=== PATIENT | male | born 1985 | race Caucasian/White ===

== ENCOUNTER 2023-01-02 09:00 | Outpatient (AMB) | payer OTHER, SELFPAY ==
--- NOTE | 2023-01-02 09:09 | HO.SPINEOV ---
Intake Intake Visit Reasons: radiculopathy Intake Note: Mr. Nolen is here today c/o back pain. MRI done @ [facility]/brought disc. [facility] Luggage Required: No Assessment & Plan Assessment & Plan (1) Lumbar facet joint pain: Code(s): M54.59 - Other low back pain Plan Dear Justen Thank you for referring Ruy Nolen to the office today with a chief complaint of low back pain. HPI: This 37-year-old male has a prolonged history of chronic low back pain. The pain started 10+ years ago when he bended forward and felt a crack in his back followed by severe pain. He had to walk around with a cane for several weeks. He describes the pain to be in the lumbar region, more on the left side with pain and the lateral part of his left thigh. The pain wakes him up at night. Turning is painful. Extension of the spine is painful. No numbness or weakness. No bowel or urinary problems. He tried anti-inflammatory drugs and chiropractic therapy without results. He is scheduled to undergo an injection. 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 This pain on palpation on the left side of his lower spine.Ritchie sign is positive. SI provocative tests are negative. Straight leg raise is negative. Neurological exam is intact to motor sensation and reflexes Radiological Studies: MRI done at [facility] shows mild degenerative disc disease L2-3 and L3-4 and a small disc bulge L4-5 from the left side without nerve compression. There is also mild facet hypertrophy. Impression/Plan: This patient is suffering from a constant low back pain not responding to anti-inflammatory drugs or conservative treatment. The history is compatible with facet joint pain. This would be my focus of injections if an epidural steroid injection does not work. I do not think the symptoms are related to the mild degenerative disc disease. However, if over time these disc start to degenerate further and no other therapies are helping then this may be the source of pain before would surgery can be considered. Thank you for allowing me to participate in your patients care. total time spent was 50 minutes in counseling ,coordination of plan, personal review of imaging, surgical decision making and subsequent plan Noel Rodriguez MD, PhD [facility] Trained Neurosurgeon Director, [facility] Coding Level of Care Code New Pt Level 4 (96253) Diagnoses Lumbar facet joint pain M54.59
== END 2023-01-02 12:03 | disposition home or self-care (01) ==
PROVIDERS: PCP Internal Medicine; Referring Provider Physician Assistant; Visit Provider Neurological Surgery
DX: M54.59 Other low back pain (principal)
CPT/HCPCS: 99204

== ENCOUNTER → 2023-01-02 09:00 | Outpatient (BNVA) | payer OTHER, SELFPAY | PROVIDERS: PCP Internal Medicine; Visit Provider Neurological Surgery | DX: G89.4 Chronic pain syndrome (principal); M54.59 Other low back pain | CPT/HCPCS: 99202 ==

== ENCOUNTER 2025-01-04 11:05 | Outpatient (REF) | payer OTHER, SELFPAY ==
--- NOTE | 2025-01-04 | EMG_ITS ---
Chief complaint: Right side low back pain Reason for referral: lumbar spondylosis Referred by: BETTY Peña Procedure done: Nerve conduction study bilateral lowers Findings: Impression: Clinical Comment:? Bilateral tibial and peroneal motor studies were performed bilateral superficial peroneal sural and lateral femoral cutaneous sensory studies were performed tibial H reflexes were obtained and EMG needle examination is performed. Impression: Mild bilateral lateral femoral cutaneous neuropathy. Otherwise no significant abnormality noted. MTDD
--- OUTSIDE RECORDS SUMMARY | 2025-01-04 13:35 | XMS_ITS | Clinical Summary ---
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 Multiplanar, multisequence MRI of the lumbar spine Withoutcontrast. COMPARISON: No priors available. FINDINGS: Lumbar alignment is within normal limits. No fracture or suspicious marrow replacing lesion. Multilevel degenerative loss of normal disc height and signal withassociated endplate spurring Mild facet arthritis at L4-5 bilaterally. Conus medullaris is normal and terminates at T12-L1. No epiduralcollection or mass is seen within the spinal canal. Right renal cyst. Paraspinal muscles are normal. Findings by level: L1-2: No foraminal or spinal canal stenosis L2-3: No foraminal or spinal canal stenosis. L3-4: Diffuse disc bulge with endplate spurring. No foraminal or spinalcanal stenosis. L4-5: Diffuse disc bulge with endplate spurring. Bilateral facetarthropathy. No spinal canal stenosis. Mild foraminal stenosisbilaterally. L5-S1: Central annular tear. No focal disc protrusion, foraminalstenosis, or spinal canal stenosis. IMPRESSION: Mild multilevel degenerative disc, facet, and endplate changes withouthigh-grade foraminal or spinal canal stenosis in the lumbar spine. -------- FINAL REPORT -------- Dictated By: COLBY EDOUARD Dictated Date: 12/14/2024 14:36 ET Assigned Physician: COLBY EDOUARD Reviewed and Electronically Signed By: COLBY EDOUARD Signed Date: 12/14/2024 14:57 ET Workstation ID: [id number] Transcribed By: Self Edit Transcribed Date: 12/14/2024 14:36 ET us Lisa Starks MD IMG MRI PROCEDURES Final Resu lt * MR Hip wo Contrast Right (12/09/2024 8:06 PM EDT) Anatomical Region Laterality Modality Lower Extremities, Hip Right Magnetic Resonance 12/10/2024 4:48 AM EDT Impressions 12/10/2024 4:56 AM EDT Constellation of findings which can be seen in the clinical setting of femoro-acetabular impingement of the right hip with associated herniation pit and possible right superior labral tear -------- FINAL REPORT -------- Dictated By: Salma Farmer Dictated Date: 12/10/2024 04:48 ET Assigned Physician: Salma Farmer Reviewed and Electronically Signed By: Salma Farmer Signed Date: 12/10/2024 04:56 ET Workstation ID: [id number] Transcribed By: Self Edit Transcribed Date: 12/10/2024 04:48 ET Narrative 12/10/2024 4:56 AM EDT INDICATION: Hip pain, chronic, articular cartilage eval, xray done COMPARISON: Correlation is made with right hip radiographs dated 10/2024 TECHNIQUE: Multiplanar, multisequence MRI was performed of the right hip without intravenous contrast administration. FINDINGS: Bone: No acute fracture or dislocation of the right hip. Mild degenerative changes of the inferior sacroiliac joints with cystic change on the right. These Osseous prominence at the right femoral head/neck junction with mild right hip acetabular over coverage. A herniation pit is noted involving the right femoral head/neck junction. No significant cartilage thinning of the right hip. Osseous prominence at the left femoral head/neck junction with mild left hip acetabular over coverage. Soft Tissues: Nonspecific fluid signal involving the superior labrum which may represent a small labral tear. No significant hip joint effusion. Mild bilateral greater trochanteric bursitis (right greater than left). Mild right gluteus medias tendinosis. Right gluteus minimums tendon is intact. Mild right common hamstring origin tendinosis. Visualized muscles of the right pelvis and upper thigh are unremarkable. Procedure Note Salma Farmer MD - 12/10/2024 INDICATION: Hip pain, chronic, articular cartilage eval, xray done COMPARISON: Correlation is made with right hip radiographs dated 10/2024 TECHNIQUE: Multiplanar, multisequence MRI was performed of the right hipwithout intravenous contrast administration. FINDINGS: Bone: No acute fracture or dislocation of the right hip. Milddegenerative changes of the inferior sacroiliac joints with cystic changeon the right. These Osseous prominence at the right femoral head/neck junction with mild righthip acetabular over coverage. A herniation pit is noted involving theright femoral head/neck junction. No significant cartilage thinning ofthe right hip. Osseous prominence at the left femoral head/neck junction with mild lefthip acetabular over coverage. Soft Tissues: Nonspecific fluid signal involving the superior labrum which may representa small labral tear. No significant hip joint effusion. Mild bilateralgreater trochanteric bursitis (right greater than left). Mild rightgluteus medias tendinosis. Right gluteus minimums tendon is intact. Mildright common hamstring origin tendinosis. Visualized muscles of the rightpelvis and upper thigh are unremarkable. IMPRESSION: Constellation of findings which can be seen in the clinical setting offemoro-acetabular impingement of the right hip with associated herniationpit and possible right superior labral tear -------- FINAL REPORT -------- Dictated By: Salma Farmer Dictated Date: 12/10/2024 04:48 ET Assigned Physician: Salma Farmer Reviewed and Electronically Signed By: Salma Farmer Signed Date: 12/10/2024 04:56 ET Workstation ID: [id number] Transcribed By: Self Edit Transcribed Date: 12/10/2024 04:48 ET Lance [facility] IMG MRI PROCEDURES Final Resul t * [place] ARTHROCENTESIS/ASPIRATION/INJECTION MAJOR JOINT/BURSA W/O U/S GUIDANCE (12/08/2024 10:00 AM EDT) Lisa Epps MD - 12/08/2024 10:00 AM EDT Lisa Starks MD 12/17/2024 3:49 PM Large joint Inj/Asp: R greater trochanteric bursa Indications: pain Details: 22 G needle, lateral approach Medications: 40 mg triamcinolone acetonide 40 mg/mL As per dictation Informed Consent: Laterality: Right Lisa Starks MD IN CLINIC/BEDSIDE ORDERABLES Final Result * (ABNORMAL) Urinalysis with reflex microscopic (11/28/2024 7:50 PM EDT) Only the most recent of2 resultswithin the time period is included. Specific [place] Urine 1.026 1.003 - 1.030 LAB URINALYSIS - AUTOMATED METHOD 11/28/2024 8:05 PM [facility] pH, Urine 6.0 5.0 - 8.0 pH LAB URINALYSIS - AUTOMATED METHOD 11/28/2024 8:05 PM [facility] Leukocytes, Urine Negative Negative LAB URINALYSIS - AUTOMATED METHOD 11/28/2024 8:05 PM [facility] Nitrite, Urine Negative Negative LAB URINALYSIS - AUTOMATED METHOD 11/28/2024 8:05 PM [facility] Protein, Urine Negative <=Trace mg/dL LAB URINALYSIS - AUTOMATED METHOD 11/28/2024 8:05 PM [facility] Glucose, Urine Negative Negative mg/dL LAB URINALYSIS - AUTOMATED METHOD 11/28/2024 8:05 PM [facility] Ketones, Urine Trace(A) Negative mg/dL LAB URINALYSIS - AUTOMATED METHOD 11/28/2024 8:05 PM [facility] Urobilinogen, Urine 0.2 0.2 - 1.0 mg/dL LAB URINALYSIS - AUTOMATED METHOD 11/28/2024 8:05 PM [facility] Bilirubin, Urine Negative Negative LAB URINALYSIS - AUTOMATED METHOD 11/28/2024 8:05 PM [facility] Blood, Urine Negative Negative LAB URINALYSIS - AUTOMATED METHOD 11/28/2024 8:05 PM [facility] Urine Urine specimen obtained by clean catch procedure / Unknown Non-blood Collection / Unknown 11/28/2024 7:50 PM EDT 11/28/2024 7:59 PM EDT us [facility] LAB URINE ORDERABLES Fin al Result [facility] [address] [place] [address], [place] [phone] * US Retroperitoneal Limited (11/28/2024 7:40 PM EDT) Anatomical Region Laterality Modality Body Ultrasound 11/28/2024 8:27 PM EDT Impressions 11/28/2024 8:27 PM EDT Impression: There is a 6.5 x 6.6 cm multilocular cyst with 3.1 mm thick septation located in the lower pole of the right kidney Bosniak classification 2 F. Recommend follow-up ultrasound in 6 months if not already done. This document has been electronically signed by: Melvin Murphy MD on 11/28/2024 20:27:06 Narrative 11/28/2024 8:27 PM EDT INDICATION: Flank pain, kidney stone suspected US retroperitoneum Comparison: CT 11/27/2024 Findings: Right kidney normal size and echotexture, 13.5cm length. No hydronephrosis. Normal color flow. There is a cyst with septations in the lower pole of the right kidney measuring 5.6 x 6.1 x 3.4 cm. Left kidney normal size and echotexture, 11.4cm in length. No hydronephrosis. Normal color flow. Urinary bladder is unremarkable. Prevoid volume mL. Postvoid volume mL. Ureteral jets are visualized bilaterally Procedure Note Melvin Murphy MD - 11/28/2024 INDICATION: Flank pain, kidney stone suspected US retroperitoneum Comparison: CT 11/27/2024 Findings: Right kidney normal size and echotexture, 13.5cm length. No hydronephrosis. Normal color flow. There is a cyst with septations in the lower pole of the right kidney measuring 5.6 x 6.1 x 3.4 cm. Left kidney normal size and echotexture, 11.4cm in length. No hydronephrosis. Normal color flow. Urinary bladder is unremarkable. Prevoid volume mL. Postvoid volume mL. Ureteral jets are visualized bilaterally IMPRESSION: Impression: There is a 6.5 x 6.6 cm multilocular cyst with 3.1 mm thick septation located in the lower pole of the right kidney Bosniak classification 2F. Recommend follow-up ultrasound in 6 months if not already done. This document has been electronically signed by: Melvin Murphy MD on 11/28/2024 20:27:06 us [facility] IMG US PROCEDURES Final Result * Reza urine culture tube (11/28/2024 12:00 AM EDT) Only the most recent of2 resultswithin the time period is included. Extra Tube Hold for add-ons. 11/28/2024 9:[address] [facility] Comment:Auto resulted. Urine Urine specimen obtained by clean catch procedure / Unknown 11/28/2024 11/28/2024 8:00 PM EDT [facility] LAB URINE ORDERABLES Fin al Result [facility] [address] [place] [address], [place] [phone] * CT Abdomen Pelvis w Contrast (11/27/2024 5:22 PM EDT) Anatomical Region Laterality Modality Body Computed Tomogra phy 11/27/2024 5:51 PM EDT Impressions 11/27/2024 5:51 PM EDT Impression: 1. No acute abnormality or CT explanation for right lower quadrant pain. Specifically, unremarkable appendix. 2. Mildly complex right renal cyst (Bosniak category 3). Consider further characterization with nonemergent MRI or renal mass protocol CT. This document has been electronically signed by: Juan Marrufo MD on 11/27/2024 17:51:01 Narrative 11/27/2024 5:51 PM EDT INDICATION: RLQ abdominal pain, appendicitis suspected (Age >= 14y) Exam: Contrast-enhanced CT abdomen and pelvis with multiplanar reformats. Comparison: None. Findings: CT abdomen: Lung bases reveal minimal bilateral dependent atelectasis. Liver is free of focal lesions and ductal dilatation. Gallbladder is unremarkable. Spleen appears unremarkable. Pancreas and adrenal glands appear unremarkable. Left kidney reveals a lower pole cyst measuring up to 5.1 cm maximal cross-sectional dimension (3; 75, 16 Hounsfield units). There is a thin internal septation, with equivocal punctate nodular foci (3; 81-84, Bosniak category 3). Kidneys otherwise unremarkable. No free intraperitoneal fluid or retroperitoneal masses or adenopathy. Abdominal aorta is normal caliber. Bowel loops reveal no abnormal wall thickening or distention. The appendix appears unremarkable (best seen on 200; 43-49). CT pelvis: Prostate gland measures 4.4 cm transverse dimension. Urinary bladder is free of gross filling defects. No pelvic masses, fluid or adenopathy. Osseous structures reveal no destructive osseous lesions. Procedure Note Juan Marrufo MD - 11/27/2024 INDICATION: RLQ abdominal pain, appendicitis suspected (Age >= 14y) Exam: Contrast-enhanced CT abdomen and pelvis with multiplanarreformats. Comparison: None. Findings: CT abdomen: Lung bases reveal minimal bilateral dependent atelectasis. Liver is free of focal lesions and ductal dilatation. Gallbladder is unremarkable. Spleen appears unremarkable. Pancreas and adrenal glands appear unremarkable. Left kidney reveals a lower pole cyst measuring up to 5.1 cm maximal cross-sectional dimension (3; 75, 16 Hounsfield units). There is a thin internal septation, with equivocal punctate nodular foci (3; 81-84, Bosniak category 3). Kidneys otherwise unremarkable. No free intraperitoneal fluid or retroperitoneal masses or adenopathy. Abdominal aorta is normal caliber. Bowel loops reveal no abnormal wall thickening or distention. Theappendix appears unremarkable (best seen on 200; 43-49). CT pelvis: Prostate gland measures 4.4 cm transverse dimension. Urinary bladder is free of gross filling defects. No pelvic masses, fluid or adenopathy. Osseous structures reveal no destructive osseous lesions. IMPRESSION: Impression: 1. No acute abnormality or CT explanation for right lower quadrant pain. Specifically, unremarkable appendix. 2. Mildly complex right renal cyst (Bosniak category 3). Considerfurther characterization with nonemergent MRI or renal mass protocol CT. This document has been electronically signed by: Juan Marrufo MD on 11/27/2024 17:51:01 Jessica Cervantes MD IMG CT PROCEDURES Final Result * (ABNORMAL) CBC auto differential (11/27/2024 3:48 PM EDT) [facility] Signature WBC 6.7 4.8 - 10.8 K/mcL LAB HEMETOLOGY METHOD 11/27/2024 4:[address] [facility] RBC 4.70 4.50 - 5.50 M/mcL LAB HEMETOLOGY METHOD 11/27/2024 4:[address] [facility] Hemoglobin 13.9 13.5 - 17.5 g/dL LAB HEMETOLOGY METHOD 11/27/2024 4:[address] [facility] Hematocrit 41.1(L) 42.0 - 54.0 % LAB HEMETOLOGY METHOD 11/27[facility]2024 [facility] MCV 88.0 79.0 - 98.0 FL LAB HEMETOLOGY METHOD 11/27[facility]2024 [facility] MCH 29.8 27.0 - 32.0 pcg LAB HEMETOLOGY METHOD 11/27/2024 4:[address] [facility] MCHC 33.8 32.0 - 37.0 g/dL LAB HEMETOLOGY METHOD 11/27/2024 4:[facility] RDW 11.4 11.0 - 15.0 % LAB HEMETOLOGY METHOD 11/27[facility]2024 [facility] Platelets 304 130 - 400 K/mcL LAB HEMETOLOGY METHOD 11/27/2024 4:[address] [facility] MPV 9.2 7.0 - 11.0 FL LAB HEMETOLOGY METHOD 11/27/2024 4[facility] NRBC 0.0 <1.0 % LAB HEMETOLOGY METHOD 11/27[facility]2024 [facility] NRBC Absolute 0.00 <0.10 K/mcL LAB HEMETOLOGY METHOD 11/27/2024 4:11 PM [facility] Neutrophils Relative 60.2 % LAB HEMETOLOGY METHOD 11/27/2024 4:11 PM [facility] Lymphocytes Relative 26.7 % LAB HEMETOLOGY METHOD 11/27/2024 4:11 PM [facility] Monocytes Relative 10.5 % LAB HEMETOLOGY METHOD 11/27/2024 4:11 PM [facility] Eosinophils Relative 2.1 % LAB HEMETOLOGY METHOD 11/27/2024 4:11 PM [facility] Basophils Relative 0.4 % LAB HEMETOLOGY METHOD 11/27/2024 4:11 PM [facility] Immature Granulocytes Relative 0.1 % LAB HEMETOLOGY METHOD 11/27/2024 4:11 PM [facility] Neutrophils Absolute 4.01 1.50 - 7.00 K/mcL LAB HEMETOLOGY METHOD 11/27/2024 4:11 PM [facility] Lymphocytes Absolute 1.78 1.00 - 5.00 K/mcL LAB HEMETOLOGY METHOD 11/27/2024 4:11 PM [facility] Monocytes Absolute 0.70 0.20 - 1.00 K/mcL LAB HEMETOLOGY METHOD 11/27/2024 4:11 PM [facility] Eosinophils Absolute 0.14 0.00 - 0.50 K/mcL LAB HEMETOLOGY METHOD 11/27/2024 4:11 PM [facility] Basophils Absolute 0.03 0.00 - 0.20 K/mcL LAB HEMETOLOGY METHOD 11/27/2024 4:11 PM [facility] Immature Granulocytes Absolute 0.01 0.00 - 0.03 K/mcL LAB HEMETOLOGY METHOD 11/27/2024 4:11 PM [facility] Blood Venous blood specimen / Unknown Venipuncture / Unknown 11/27/2024 3:48 PM EDT 11/27/2024 4:06 PM EDT us Jessica Cervantes MD LAB BLOOD ORDERABLES Final Resul t Performing Organization Address [facility]/ZIP Co de Phone Number [facility] [address] [place] [address], [place] [phone] * Lipase (11/27/2024 3:48 PM EDT) Lipase 24 13 - 75 unit/L LAB CHEMISTRY METHOD 11/27/2024 4:[address] [facility] Blood Venous blood specimen / Unknown Venipuncture / Unknown 11/27/2024 3:48 PM EDT 11/27/2024 4:06 PM EDT us Jessica Cervantes MD LAB BLOOD ORDERABLES Final Resul t Performing Organization Address [facility] de Phone Number [facility] [address] [place] [address], [place] [phone] * (ABNORMAL) Comprehensive Metabolic Panel (CMP) (11/27/2024 3:48 PM EDT) Pathologist [facility] Sodium 138 133 - 145 mmol/L LAB CHEMISTRY METHOD 11/27/2024 4:[address] [facility] Potassium 3.9 3.5 - 5.5 mmol/L LAB CHEMISTRY METHOD 11/27/2024 4:[address] [facility] Chloride 104 96 - 110 mmol/L LAB CHEMISTRY METHOD 11/27/2024 4:[address] [facility] CO2 32 21 - 32 mmol/L LAB CHEMISTRY METHOD 11/27/2024 4:[address] [facility] Anion Gap 2(L) 3 - 11 LAB CHEMISTRY METHOD 11/27/2024 4:[address] [facility] Glucose 98 70 - 100 mg/dL LAB CHEMISTRY METHOD 11/27/2024 4:53 PM [facility] BUN 24 5 - 25 mg/dL LAB CHEMISTRY METHOD 11/27/2024 4:53 PM [facility] Creatinine 1.13 0.70 - 1.30 mg/dL LAB CHEMISTRY METHOD 11/27/2024 4:53 PM [facility] eGFR 85 >=60 mL/min/1. 73m2 LAB CHEMISTRY METHOD 11/27/2024 4:53 PM [facility] Comment:Calculation based on the Chronic Kidney Disease Epidemiology Collaboration (CKD-EPI) equation refit without adjustment for race. BUN/Creatinine Ratio 21.2 LAB CHEMISTRY METHOD 11/27/2024 4:53 PM [facility] Calcium 9.0 8.5 - 10.5 mg/dL LAB CHEMISTRY METHOD 11/27/2024 4:53 PM [facility] AST (SGOT) 18 10 - 42 unit/L LAB CHEMISTRY METHOD 11/27/2024 4:53 PM [facility] ALT (SGPT) 20 10 - 60 unit/L LAB CHEMISTRY METHOD 11/27/2024 4:53 PM [facility] Alkaline Phosphatase 95 42 - 121 unit/L LAB CHEMISTRY METHOD 11/27/2024 4:53 PM [facility] Total Protein 7.2 6.0 - 8.0 g/dL LAB CHEMISTRY METHOD 11/27/2024 4:53 PM [facility] Albumin 4.0 3.2 - 5.0 g/dL LAB CHEMISTRY METHOD 11/27/2024 4:53 PM [facility] Total Bilirubin 0.5 0.0 - 1.4 mg/dL LAB CHEMISTRY METHOD 11/27/2024 4:53 PM [facility] Blood Venous blood specimen / Unknown Venipuncture / Unknown 11/27/2024 3:48 PM EDT 11/27/2024 4:06 PM EDT us Jessica Cervantes MD LAB BLOOD ORDERABLES Final Resul t [facility] [address] [place] [address], [place] [phone] * Urinalysis with reflex microscopic and culture (11/27/2024 3:44 PM EDT) Pathologist [facility] Specific [place] Urine 1.019 1.003 - 1.030 LAB URINALYSIS - AUTOMATED METHOD [facility] pH, Urine 7.0 5.0 - 8.0 pH LAB URINALYSIS - AUTOMATED METHOD 11/27/2024 10:03 PM [facility] Leukocytes, Urine Negative Negative LAB URINALYSIS - AUTOMATED METHOD 11/27/2024 10:03 PM [facility] Nitrite, Urine Negative Negative LAB URINALYSIS - AUTOMATED METHOD 11/27/2024 10:03 PM [facility] Protein, Urine Negative <=Trace mg/dL LAB URINALYSIS - AUTOMATED METHOD 11/27/2024 10:03 PM [facility] Glucose, Urine Negative Negative mg/dL LAB URINALYSIS - AUTOMATED METHOD 11/27/2024 10:03 PM [facility] Ketones, Urine Negative Negative mg/dL LAB URINALYSIS - AUTOMATED METHOD 11/27/2024 10:03 PM [facility] Urobilinogen, Urine 1.0 0.2 - 1.0 mg/dL LAB URINALYSIS - AUTOMATED METHOD 11/27/2024 10:03 PM [facility] Bilirubin, Urine Negative Negative LAB URINALYSIS - AUTOMATED METHOD 11/27/2024 10:03 PM [facility] Blood, Urine Negative Negative LAB URINALYSIS - AUTOMATED METHOD 11/27/2024 10:[address] [facility] Urine Urine specimen obtained by clean catch procedure / Unknown Non-blood Collection / Unknown 11/27/2024 3:44 PM EDT 11/27/2024 10:03 PM EDT us Jessica Cervantes MD LAB URINE ORDERABLES Final Resul t [facility] [address] [place] [address], [place] [phone] * XR Hip 2-3 Views Right (11/25/2024 6:22 PM EDT) Anatomical Region Laterality Modality Lower Extremities, Hip Right Radiograp hic Imaging 11/26/2024 7:48 AM EDT Impressions 11/26/2024 7:49 AM EDT Normal examination. Code 96833 -------- FINAL REPORT -------- Dictated By: Carlos Toure Dictated Date: 11/26/2024 07:48 ET Assigned Physician: Carlos Toure Reviewed and Electronically Signed By: Carlos Toure Signed Date: 11/26/2024 07:49 ET Workstation ID: [id number] Transcribed By: Self Edit Transcribed Date: 11/26/2024 07:48 ET Narrative 11/26/2024 7:49 AM EDT HISTORY: The patient is a 39-year-old male with chronic right hip pain. No history of trauma is provided. Findings: AP radiograph of the pelvis, along with coned-down AP and external rotation-abduction views of the right hip, are obtained. The study demonstrates no fracture, dislocation, arthritic change, osteolytic or osteoblastic lesion, or other bony abnormality. No soft tissue abnormality is seen. Procedure Note Carlos Toure MD - 11/26/2024 HISTORY: The patient is a 39-year-old male with chronic right hip pain. Nohistory of trauma is provided. Findings: AP radiograph of the pelvis, along with coned-down AP andexternal rotation-abduction views of the right hip, are obtained. Thestudy demonstrates no fracture, dislocation, arthritic change, osteolyticor osteoblastic lesion, or other bony abnormality. No soft tissueabnormality is seen. IMPRESSION: Normal examination. Code 15129 -------- FINAL REPORT -------- Dictated By: Carlos Toure Dictated Date: 11/26/2024 07:48 ET Assigned Physician: Carlos Toure Reviewed and Electronically Signed By: Carlos Toure Signed Date: 11/26/2024 07:49 ET Workstation ID: [id number] Transcribed By: Self Edit Transcribed Date: 11/26/2024 07:48 ET Dipesh [facility] IMG XR PROCEDURES Final Resul t * MR Foot wo Contrast Right (11/25/2024 11:04 AM EDT) Anatomical Region Laterality Modality Lower Extremities, Foot Right Magnetic Resonance 11/26/2024 7:28 PM EDT Impressions 11/26/2024 7:42 PM EDT Mild 1st MTP osteoarthritis. No fracture, ligament injury, or tendon rupture. -------- FINAL REPORT -------- Dictated By: COLBY EDOUARD Dictated Date: 11/26/2024 19:28 ET Assigned Physician: COLBY EDOUARD Reviewed and Electronically Signed By: COLBY EDOUARD Signed Date: 11/26/2024 19:42 ET Workstation ID: [id number] Transcribed By: Self Edit Transcribed Date: 11/26/2024 19:28 ET Narrative 11/26/2024 7:42 PM EDT PROCEDURE: Right foot MRI INDICATION: Strain TECHNIQUE: Multiplanar, multisequence MRI of the right foot Without contrast. COMPARISON: No priors available. FINDINGS: There is susceptibility artifact between the 4th and 5th toes as well as along the superficial soft tissues lateral to the proximal 5th metatarsal which may be related to surgical hardware and/or metallic foreign bodies in the region. Several additional small foci of susceptibility artifact are also seen throughout the cutaneous surfaces of the forefoot. No fracture or suspicious marrow replacing lesion. Diffuse partial-thickness articular cartilage loss is seen at the 1st MTP with regions of full-thickness cartilage loss along the central portion of the 1st metatarsal head. No significant joint effusions. Lisfranc ligament complex and intermetatarsal ligaments are intact where visualized. Greater and lesser plantar plate ligament is structures are intact. Flexor and extensor tendons are intact. Muscle bulk is preserved. No soft tissue mass or fluid collection. Procedure Note Colby Edouard MD - 11/26/2024 PROCEDURE: Right foot MRI INDICATION: Strain TECHNIQUE: Multiplanar, multisequence MRI of the right foot Withoutcontrast. COMPARISON: No priors available. FINDINGS: There is susceptibility artifact between the 4th and 5th toes as well asalong the superficial soft tissues lateral to the proximal 5th metatarsalwhich may be related to surgical hardware and/or metallic foreign bodiesin the region. Several additional small foci of susceptibility artifactare also seen throughout the cutaneous surfaces of the forefoot. No fracture or suspicious marrow replacing lesion. Diffuse partial-thickness articular cartilage loss is seen at the 1st MTPwith regions of full-thickness cartilage loss along the central portion ofthe 1st metatarsal head. No significant joint effusions. Lisfranc ligament complex and intermetatarsal ligaments are intact wherevisualized. Greater and lesser plantar plate ligament is structures areintact. Flexor and extensor tendons are intact. Muscle bulk is preserved. No soft tissue mass or fluid collection. IMPRESSION: Mild 1st MTP osteoarthritis. No fracture, ligament injury, or tendonrupture. -------- FINAL REPORT -------- Dictated By: COLBY EDOUARD Dictated Date: 11/26/2024 19:28 ET Assigned Physician: COLBY EDOUARD Reviewed and Electronically Signed By: COLBY EDOUARD Signed Date: 11/26/2024 19:42 ET Workstation ID: [id number] Transcribed By: Self Edit Transcribed Date: 11/26/2024 19:28 ET Ru Ivan DPM IMG MRI PROCEDURES Final Result * [place] ARTHROCENTESIS/ASPIRATION/INJECTION SMALL JOINT/BURSA WO U/S GUIDANCE (11/03/2024 8:45 AM EDT) Lisa Epps MD - 11/03/2024 8:45 AM EDT Lisa Starks MD 11/03/2024 10:16 AM Small Inj/Asp: L long MCP Details: 25 G needle, dorsal approach Medications: 20 mg triamcinolone acetonide 40 mg/mL The site over the MCP joint of the left long finger was prepped with Betadine alcohol. A small wheal of 1% lidocaine with epinephrine was injected under the skin. After that had a chance to take effect of then prepped the area again and injected 20 mg of Kenalog into the joint. A Band-Aid was applied. Patient tolerated well. Informed Consent: Site: Left long finger MCP joint Laterality: Left Relevant images/test results available and reviewed: yes Health status cleared: Yes Procedure/treatment, purpose, treatment alternatives, risks/potential complications and benefits explained: yes Risk/complications/benefits details: Cortisone is an effective medication to treat swelling, inflammation, and pain. It is used frequently for such conditions as arthritis, tendinitis, bursitis, and carpal tunnel syndrome. However, there are risks to the use of cortisone. For diabetics it can raise blood sugars to a dangerous level. It can cause skin thinning, fat atrophy, skin discoloration, and wound healing issues. It can predispose to infection. Chronic use can affect bone metabolism. It can over time and with repeated usage become less effective. Generally it is advisable NOT to have more than 3 injections/year. Patient questions answered: yes Patient agrees, verbalizes understanding, and wants to proceed: yes Consent given by: Patient Informed consent discussion completed by Physician/RIAZ with patient: Verbal Pre-procedure timeout performed: yes us Lisa Starks MD IN CLINIC/BEDSIDE ORDERABLES Final Result * XR Hand 3+ Views Left (11/03/2024 8:43 AM EDT) Anatomical Region Laterality Modality Upper Extremities, Hand Left Computed Radiography Narrative 11/03/2024 10:12 AM EDT AP, lateral, oblique of the left hand was obtained on 11/03/2024. There are no obvious fractures, lytic lesions, or unusual calcifications. Soft tissue envelope is well-maintained. Joint spaces are well-maintained and concentric. us Lisa Starks MD IMG XR PROCEDURES Final Resul t * Hm Depression Screening (10/08/2023) Pathologist [facility] Depression Screening Abstracted Historical Provider HEALTH MAINTENANCE Final Result * Lipid panel (12/01/2012) Pathologist [facility] Cholesterol 150 0 - 200 mg/dL LDL Cholesterol 78 0 - 100 mg/dL Blood Venous blood specimen / Unknown Historical Provider LAB BLOOD ORDERABLES Prudence l Result from Last 3 Months or Most Recently Relevant to Health Maintenance Insurance [facility] [email or web address] PLAN Advance Directives * Full Code - Default (Latest Code Status on File) Date Activated Date Inactivated Comments 08/06/2024 7:39 AM 08/06/2024 4:50 PM This is orde r is used when code status has not been discussed with the patient, or code status is otherwise unknown/unconfirmed To update the patient's code status, place a code status order. Do not modify or discontinue any currently active code status orders. Care Teams Restuarant Crew Worker Relationship Specialty Start Date End Date Cynthia Hall MD [facility] [place] [address] PCP - General 02/11/24
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
--- OUTSIDE RECORDS SUMMARY | 2025-01-04 13:35 | XMS_ITS | Clinical Summary ---
Author Organization [facility] Address [address] [place] [address] Phone Care Team Providers Care Box Icer Name Role Phone Cynthia Hall MD Primary Care Pr ovider Social History Tobacco Use Types Packs/Day Years Used Date Smoking Tobacco: Never Assessed Sex and Gender Information Value Date Recorded Sex Assigned at Male 09/07/2024 4:12 PM EDT Legal Sex Male 5:00 PM EST Gender Identity Male 09/07/2024 4:12 PM EDT Sexual Orientation Straight 09/07/2024 4: 12 PM EDT Plan of Treatment Not on file Medical Devices Not on file Insurance [facility]D) [facility]CO [facility] ([employer]D) [facility] ACO [facility] (MXD[employer]D) [facility] ACO Care Teams Box Icer Relationship Specialty Start Date End Date Cynthia Hall MD [address] [place] [address] PCP - General Internal Medicine 09/07/24 Additional Source Comments The information contained in this document represents components of the legal health record. It is not the complete legal health record.[facility]
--- OUTSIDE RECORDS SUMMARY | 2025-01-04 13:35 | XMS_ITS | Encounter Summary ---
Author Organization [facility] Address [address] [place] [address] Care Team Providers Care Pan Shover Name Role Phone Cynthia Hall MD Primary Care Prov ider Reason for Visit * Reason Onset Date Comments MRI results 12/16/2024 Encounter Details Date Type Department Care Team (Late st Contact Info) Description 12/16/2024 Telephone Orthopedic Surgery - [place] [address] [phone] Ru Ivan, DPM [address] [phone] Social History Tobacco Use Types Packs/Day Years [...] as of this encounter Progress Notes * Clemente Nolen - 12/16/2024 10:15 AM EDT Patient is looking for his MRI results. documented in this encounter Plan of Treatment Upcoming Encounters Date Type Department Care Team (Late st Contact Info) Description 01/08/2025 8:00 AM EDT Office Visit Orthopedic Surgery [facility] [address] [facility] 160 [place] [phone] Leyda Marte MD [address] [facility] 160 [place], [place] [phone] 02/04/2025 8:45 AM EDT Office Visit Orthopedic Surgery [facility] [address] [facility] [address] [place] [phone] Ru Ivan DPM 175 [facility] 250 [place] [phone] 03/09/2025 9:30 AM EST Office Visit Orthopedic [facility] [address] [facility] 140 [place] [phone] Lisa Starks MD 175 [facility] 140 [place] [address] Scheduled Procedures Name Priority Associated [...] on filedocumented in this encounter Care Teams Pan Shover Relationship Specialty Start Date End Date Cynthia Hall MD [address] [place] [address] PCP - General 02/11/24 documented as of this encounter
--- OUTSIDE RECORDS SUMMARY | 2025-01-04 13:35 | XMS_ITS | Encounter Summary ---
Author Organization [employer] Address [address] [place] [address] Care Team Providers Care Management Aide Name Role Phone Cynthia Hall MD Primary Care Prov ider Reason for Visit * Reason Onset Date Comments Request For Order(s) 12/08/2024 Encounter Details Date Type Department Care Team ([facility] st Contact Info) Description 12/08/2024 Telephone Adult Medicine - [place] [address] [place] [phone] Cynthia Hall MD [address] [place] [address] Social History Tobacco Use Types Packs/Day Years [...] as of this encounter Progress Notes * Dinora Cunha - 12/08/2024 3:52 PM EDT Pt called back and said insurance denied MRI request. * Dinora Cunha - 12/08/2024 3:24 PM EDT Pt's says that even though the MRI says stat on our end, it wasn't put in as stat for insurance approval. Pt's says she spoke to her insurance and they said Valente Mcnamara himself needs to call to update the status to STAT documented in this encounter Plan of Treatment Upcoming Encounters Date Type Department Care Team (Late st Contact Info) Description 01/08/2025 8:00 AM EDT Office Visit Orthopedic Surgery [facility] 160 175 [facility] 160 [place] [phone] Leyda Marte MD 175 [facility] 160 [place] [address] 02/04/2025 8:45 AM EDT Office Visit Orthopedic [facility] 250 175 [facility] 250 [place] [phone] Ru Ivan DPM [address] [phone] 03/09/2025 9:30 AM EST Office Visit Orthopedic [facility] 175 [facility] 140 [place] [phone] Lisa Starks MD 175 [facility] 140 [place] [phone] Scheduled Procedures Name Priority Associated Diagnoses Date/Ti me ARTHRODESIS METATARSOPHALANGEAL Hallux rigidus of left foot Disorder of ligament of foot, left documented as of this encounter Goals Goal Patient Goal Type Associated Problems Recent Progress Patient-Stated? Author <enter goal here> General Improving( 9:09 AM EDT) Yes Gregoria Chavira OT Note: OT PATIENT GOAL HAVE LESS PAIN WITH DAILY ACTIVITIES documented as of this encounter Visit Diagnoses Not on filedocumented in this encounter Care Teams Management Aide Relationship Specialty Start Date End Date Cynthia Hall MD [address] [place] [address] PCP - General 02/11/24 documented as of this encounter
--- OUTSIDE RECORDS SUMMARY | 2025-01-04 13:35 | XMS_ITS | Encounter Summary ---
Author Organization [place] [address] Care Team Providers Care Commercial Diver Name Role Phone Cynthia Hall MD Primary Care Prov ider Encounter Details Date Type Department Care Team ([facility] st Contact Info) Description 12/24/2024 Telephone Orthopedic Surgery - [place] [address] [phone] Leyda Marte MD 175 [facility] 160 [place] [address] Social History Tobacco Use Types Packs/Day Years [...] as of this encounter Progress Notes * Leyda Marte MD - 12/24/2024 8:57 AM EDT Spoke with him * Camille Henry - 12/24/2024 8:39 AM EDT Ruy called asking for a call back when able. He states the Gabapentin does not help at all. He just asked to speak with you. Please advise. Thanks documented in this encounter Plan of Treatment Upcoming Encounters Date Type Department Care Team (Late st Contact Info) Description 01/08/2025 8:00 AM EDT Office Visit Orthopedic Surgery [facility] 160 175 [facility] 160 [place] [phone] Leyda Marte MD 175 [facility] 160 [place] [address] 02/04/2025 8:45 AM EDT Office Visit Orthopedic [facility] 250 [address] [facility] 250 [place] [phone] Ru Ivan DPM 175 [facility] 250 [place] [phone] 03/09/2025 9:30 AM EST Office Visit [facility] 175 [facility] 140 [place] [phone] Lisa Starks MD 175 [facility] 140 [place] [phone] Scheduled Procedures Name Priority Associated Diagnoses Date/Ti [...] on filedocumented in this encounter Care Teams Commercial Diver Relationship Specialty Start Date End Date Cynthia Hall MD [address] [place] [address] PCP - General 02/11/24 documented as of this encounter
--- OUTSIDE RECORDS SUMMARY | 2025-01-04 13:35 | XMS_ITS ---
Author Name [facility] Organization Unknown Care Team Organization Name Specialty Phone Email Start Date End Da te [facility] GAYLE INIGUEZ Primary Care 03/06/2022 12/16/2023
== END 2025-01-04 11:06 | disposition home or self-care (01) ==
LOC: HO.NEURO 11:05
PROVIDERS: PCP Internal Medicine; Referring Provider Physician Assistant; Visit Provider Psychiatry & Neurology Neurology
DX: M47.26 Other spondylosis with radiculopathy, lumbar region (principal)
CPT/HCPCS: 95886; 95913

== ENCOUNTER → 2025-01-04 11:05 | Outpatient (BNV) | payer OTHER, SELFPAY | PROVIDERS: PCP Internal Medicine; Referring Provider Physician Assistant; Visit Provider Psychiatry & Neurology Neurology | DX: M47.26 Other spondylosis with radiculopathy, lumbar region (principal) | CPT/HCPCS: 95886; 95913 ==

== ENCOUNTER 2025-01-22 14:29 | Outpatient (AMB) | payer OTHER, SELFPAY ==
--- NOTE | 2025-01-22 14:37 | HO.SPINEOV ---
Vital Signs 01/22/25 14:44 Height 5 ft 7 in Weight 172 lb BMI 26.9 Intake Visit Reasons: would like to discuss possible sx Intake Note: Mr. Nolen is here today to Discuss Surgery. Rn Observation Required: No Allergies No Known Allergies Allergy (Verified 01/22/25 14:44) Physical Exam Vital Signs: BMI result Body Mass Index 26.9 Assessment & Plan Assessment & Plan (1) Sacroiliitis, not elsewhere classified: Code(s): M46.1 - Sacroiliitis, not elsewhere classified Category: Medical Plan Dear colleague, On 01/22/2025 I saw for return visit Ruy Nolen for severe pain in the SI joint reason. As you know, he has been suffering from low back pain for which I saw him in December 2022. An MRI of the lumbar spine showed mild degenerative disc disease and I did not think this could explain the symptoms. Now over time it has become more clear that the pain is generated from the right SI joint. The patient is a nonsmoker. The nonradiating pain is located over the sacral sulcus caudal to the lumbar spine and rated as a 9/10. There are no other pain disorders. The patient had multiple physical therapy and chiropractic sessions for more than 6 months without success. Physical therapy provided the patient with active therapeutic exercises targeted at the lumbar spine pelvis sacroiliac joint and hip, including a home exercise program that provided no relief. The patient also had activity modification and bracing. Physical exam reviews positive response to long ligament test, ZARI test, active straight leg raise , compression test and thigh thrust test. An SI joint injection on 3 separate occasions provided 80% relief. In summary, this patient is suffering from a right sacroiliitis and would benefit from an SI joint fusion. We will get insurance approval and will then schedule him for this procedure. I spent 40 minutes to review imaging and to discuss plan of care. Noel Rodriguez MD, PhD Spine Fellowship Trained Neurosurgeon Director, [facility] [place] [facility] Coding Level of Care Code Est Pt Level 4 (52182) Diagnoses Sacroiliitis, not elsewhere classified M46.1
[2025-01-22 14:44] VITALS: BMI 26.9
--- OUTSIDE RECORDS SUMMARY | 2025-01-22 15:24 | XMS_ITS | Clinical Summary ---
Author Organization [facility] Address [address] [place] [phone] Phone Care Team Providers Care Engineer Specialist Name Role Phone Cynthia Hall MD Primary [...] file Medical Devices Not on file Insurance [facility] ACO Care Teams Engineer Specialist Relationship Specialty Start Date End Date Cynthia Hall MD [address] [place] [address] PCP - General Internal Medicine 09/07/24 Additional Source Comments The information contained in this document represents components of the legal health record. It is not the complete legal health record.[facility]
== END 2025-01-22 15:19 | disposition home or self-care (01) ==
LOC: HO.HNS 14:30
PROVIDERS: PCP Internal Medicine; Visit Provider Neurological Surgery
DX: M46.1 Sacroiliitis, not elsewhere classified (principal)
CPT/HCPCS: 99214

== ENCOUNTER → 2025-01-22 14:29 | Outpatient (BNVA) | payer OTHER, SELFPAY | PROVIDERS: PCP Internal Medicine; Visit Provider Neurological Surgery | DX: M46.1 Sacroiliitis, not elsewhere classified (principal) | CPT/HCPCS: 99212 ==

== ENCOUNTER 2025-04-08 10:33 | Day surgery (SDC) | payer OTHER, SELFPAY ==
--- OUTSIDE RECORDS SUMMARY | 2025-03-15 17:00 | XMS_ITS | Encounter Summary ---
Author Organization [facility] Address [address] [place] [address] Care Team Providers Care Voice Engineer Name Role Phone Cynthia Hall MD Primary Care Prov ider Reason for Visit * Consultation (Routine) - Authorized Specialty Diagnoses / Procedures Referred By Controber t Referred To Contact Physical Therapy Diagnoses Acute pain of left knee Leyda Marte MD Phone: tel: fax: [address] [address] Phone: tel: fax: Referral ID Status Reason Start Date Expiration Date Visits Requested Visits Authorized [id number] Authorized Specialty Services Required 03/01/2025 03/01/2026 21 9 Encounter Details Date Type Department Care Team (Latest Contact Info) Description 03/15/2025 5:00 PM EST Evaluation [address] [address] Norma Jeronimo, PT Acute pain of left knee (Primary Dx) Social History Tobacco Use Types Packs/Day Years Used Date Smoking Tobacco: Never Smokeless Tobacco: Never Alcohol Use Standard Drinks/Week Comments No 0 (1 standard drink = 0.6 oz pur e alcohol) Interpersonal Safety Answer Date Record ed Physical Abuse Unrecognized value 08/06/2024 Verbal Abuse Unrecognized value 08/06/2024 Sex and Gender Information Value Date Recorded Sex Assigned at Not on file Legal Sex Male 2:59 AM EST Gender Identity Not on file Sexual Orientation Straight 06/07/2024 9: 43 AM EST documented as of this encounter Progress Notes * Norma Jeronimo PT - 03/15/2025 5:00 PM EST [facility] - Outpatient PHYSICAL THERAPY EVALUATION Date: 03/15/2025 Visit Number: 1 Patient Name: Ruy Nolen : 1985 Age: 39 y.o. Gender: male Diagnosis: ICD-10-CM ICD-9-CM 1. Acute pain of left knee M25.562 719.46 Ambulatory referral to Physical Therapy and Athletic Training Date of Onset/Surgery: 02/12/2025 Referring Provider: Leyda Marte MD Insurance: Payor: [employer] / Plan: WELLSENSE MEDICAID / Product Type: *No Product type* / Patient identified by: Norma Jeronimo PT Language: Speaks and understands Sierra Leonean as preferred language with no station repairer required Chart Reviewed: Yes Medications: Medications Ordered Prior to Encounter[1] Discussed current medications that may impact therapy. Medication list obtained and reviewed. Referto document in medical record. Advised Patient to contact MD with any questions regarding medications and importance of managing medication information. has a past medical history of Delayed emergence from general anesthesia, Fibromyalgia, Meningitis, Neuropathy, [place]-Schlatter's disease, and PONV (postoperative nausea and vomiting). has a past surgical history that includes Hand surgery ([id number]); Knee surgery; Wrist surgery (Left); Hand surgery (-[id number]); Shoulder surgery (Right); Finger surgery (Right, 01/08/2024); Rotator cuff repair; Meniscectomy; Carpal tunnel release; and Finger surgery (Right, 08/06/2024). has no known allergies. Precautions: Rheumatoid Arthritis- multiple joint pain, R SI joint dysfunction may limit his ability to do certain exercises (very painful and is getting surgery on it in March) Concurrent Services: No Concurrent Services SUBJECTIVE HISTORY: Patient presents to clinic with acute L knee pain that started at least one month ago whenhe was picking up his 10 month old son. He felt a snap and caused him to fall down. He had immediate pain and swelling after this. *is getting surgery for R SI joint dysfunction (04/08)- uses a crutch when walking because of the SI joint issue COURSE OF CURRENT CONDITION: worse PREVIOUS EPISODES: none for left knee PREVIOUS MEDICAL CARE/THERAPY: knee injection- ineffective DIAGNOSTIC TESTS: X-ray: Marked infrapatellar soft tissue swelling. 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) LEISURE/ACTIVITY LEVEL: has 10 month old GOALS: hoping for the best, wants to get MRI Prior Level of Function: some mobility limitations due to other pain/issues Current Functional Limitations: Reported by Patient bending down/squatting, kneeling, stairs Pain: Current level of pain 4/10; Pain at worst over the past week 10/10 and at best is a 4/10 Pain/symptoms described as: burning, pressure, unstable with stairs Pain is located: lateral knee Aggravating factors include: bending/squatting to floor, kneeling on knee Easing factors include: nothing, wait it out (burning gets better after about 10 min) Is the patient at Risk for Falls: Assistive devices available to patient OBJECTIVE *P=Pain, NT=Not tested Vitals: There were no vitals filed for this visit.; Gait: amb with one axillary crutch on R side and step-through pattern (does tend to keep crutch in unison with R lower extremity) Posture/Observation: prominent anterior tibial tubercle, no notable swelling around knee joint seen Palpation: maximal tenderness lateral joint line, along LCL, min tenderness medial joint line KNEE RANGE OF MOTION Left AROM Left PROM Flexion (135 degrees) 70 P 110 Extension (0 degrees) 0 0 Left lower extremity strength: Hip Flexion 3/5 (more limited due to hip issue as per patient) Knee extension 4-/5 P Knee flexion 4-/5 Ankle DF 5/5 Special Tests: - varus and valgus stress test - anterior and posterior drawer [facility]'s test inconclusive - patella grind Other Assessments: Able to L straight leg raise 2 in off table with mild bilateral hip/SI joint pain TREATMENT INTERVENTION Procedures: Supine L quad set x 10, 5 sec hold Supine L straight leg raise x 10, 1-2 sec hold Supine L heel slides with strap x 10, 1-2 sec hold Patient education on potential injury Home exercise program: Above exercises to be done 2x a day 1-2 sets of 10 ASSESSMENT/Response to Treatment: Ruy Nolen is a 39 y.o. male presenting for outpatient physical therapy evaluation with complaints of acute left knee pain. Signs and symptoms may be related to lateral meniscal injury. Significant clinical findings include: decreased knee ROM and decreased hip/knee strength. Impaired gait is more related to R SI joint dysfunction as per patient. Patients progress may be limited by severity of injury. Skilled Physical therapy is medically necessary to address these limitations. Rehabilitation Potential: Rehab Potential: Condition Has Potential to Improve Motivation for Rehab: Good Support Structure: Good Learning Needs: Were Patient Learning needs assessed: Yes Learning Preferences: Explanation, Demonstration, and Printed Materials Barriers to Learning: No Barriers to Learning Patient Education: [x] Discussed, with patient and/or caregiver, the recommended plan of care/goals, the importance oftherapy and appointment compliance in order to achieve goals in a timely manner. Education provided: home exercise program and plan of care Education Provided To: Patient utilizing Explanation, Demonstration, and Printed Material as mode(s) of education. Response to Education: Verbal Understanding and Demonstrated Skills GOALS Short Term Goals (will be achieved in 4 weeks) 1. Initiate home exercise program. 2. Pain will be improved by 2-3 points on VAS. 3. Patient will improve hip/knee strength by 1/3 grade on manual muscle testing. 4. Patient will improve knee flexion AROM to 115 deg or better. Mcc Goals (will be achieved in 8-12 weeks) 1. Patient will be independent with home exercise program to maintain therapeutic gains. 2. Patient will be able to squat/bend down with min to no pain or limitation. 3. Patient will negotiate stairs with min to no pain or limitation. PLAN POC Development/Review: Initial Evaluation; Participants: Patient Skilled Therapy Plan Required: YES- Reasons for Rehab and Medical Necessity -- Return to Premorbid Environment and Reduce Need for Assist with Functional Activity/ADL's/Mobility Frequency/Duration of Treatment: 1-2x a week for 4 weeks initially (if improving may do up to 8-12 weeks as needed) Plan for next session(s): left hip/knee strengthening and gentle ROM as tolerated; consider tape, gentle massage, and/or modalities as needed (double check for contraindications) Planned Therapy Interventions: Cold Pack, E-Stim -- Unattended, Gait Training, Hot Pack, Kinesiotaping, Manual Therapy, Neuromuscular Re-education, Patient / Family Education, Self Care Management, Soft Tissue Mobility, TENS, Therapeutic Activity, and Therapeutic Exercise Recommended Consults: f/u with ortho as indicated Equipment Recommended: none; Equipment Provided: none BILLING TOTAL TREATMENT TIME: 50 Minutes Evaluation Medium Complexity Justification ::: A history of present problem with 1 - 2 personal factors and/or co-morbidities that impact the plan of care Documentation completed by Norma Jeronimo PT [address] [address] Dept: [phone] Dept PATIENT NAME: Ruy Nolen : 1985 Certification: This is to certify that the above named patient, who is under my care, requires skilled Therapy services as described in the above treatment plan. I further certify that the services outlined in this plan are skilled and medically necessary. I have reviewed this plan for rehabilitation services, and I recommend that these services continue to meet the above stated goals and plan. SIGNATURE: DATE Leyda Marte MD Referring provider [1] Current Outpatient Medications on File Prior to Visit Medication Sig Dispense Refill DULoxetine (CYMBALTA) [address] capsule Take 1 capsule (60 mg total) by mouth 1 (one) time each day.Do not crush or chew. 90 capsule 1 No current facility-administered medications on file prior to visit. documented in this encounter Plan of Treatment Upcoming Encounters Date Type Department Care Team (Late st Contact Info) Description 03/23/2025 7:30 AM EST Treatment [address] [phone] Maurilio Denney, GROUND TRANSPORTATION OPERATOR 03/30/2025 8:30 AM EST Treatment [facility] [address] [address] Michael Damian, GROUND TRANSPORTATION OPERATOR 04/01/2025 7:30 AM EST Treatment [facility] [address] [phone] Maurilio Denney, GROUND TRANSPORTATION OPERATOR 04/06/2025 8:00 AM EST Treatment [facility] [address] [address] Maurilio Denney, GROUND TRANSPORTATION OPERATOR 04/06/2025 9:00 AM EST Office Visit Orthopedic [facility] 160 175 [facility] [address] [place] [address] Leyda Marte MD 175 [facility] 160 [place] [address] 04/13/2025 7:30 AM EST Treatment [facility] [address] [phone] Maurilio Denney, GROUND TRANSPORTATION OPERATOR 04/15/2025 7:30 AM EST Treatment [facility] [address] [address] Norma Jeronimo, PT 04/20/2025 7:30 AM EST Treatment [facility] [address] [address] Norma Jeronimo, PT 05/10/2025 9:00 AM EST Office Visit Orthopedic Surgery [facility] 250 175 [facility] [address] [place] [phone] Ru Ivan DPM [address] [phone] Scheduled Procedures Name Priority Associated Diagnoses Date/Ti [...] documented as of this encounter Visit Diagnoses Diagnosis Acute pain of left knee- Primary documented in this encounter Orders Outpatient Referral Count Last Ordered Date Fir st Ordered Date AMB REFERRAL TO PHYSICAL THE [facility] ATHLETIC TRAINING 1 03/15/2025 documented in this encounter Care Teams Voice Engineer Relationship Specialty Start Date End Date Cynthia Hall MD [address] [place] [address] PCP - General 02/11/24 documented as of this encounter
--- OUTSIDE RECORDS SUMMARY | 2025-03-16 07:30 | XMS_ITS | Encounter Summary ---
Author Organization [facility] Address [address] [place] [address] Care Team Providers Care Air Brake Operator Name Role Phone Cynthia Hall MD Primary Care Prov ider Reason for Visit * Consultation (Routine) - Authorized Specialty Diagnoses / Procedures Referred By Controber t Referred To Contact Physical Therapy Diagnoses Acute pain of left knee Leyda Marte MD Phone: tel: fax: [address] [address] Phone: tel: fax: Referral ID Status Reason Start Date Expiration Date Visits Requested Visits Authorized [id number] Authorized Specialty Services Required 03/01/2025 03/01/2026 21 9 Encounter Details Date Type Department Care Team (Late st Contact Info) Description 03/16/2025 7:30 AM EST Treatment [address] [address] Norma Jeronimo, PT Acute pain [...] Progress Notes * Norma Jeronimo PT - 03/16/2025 7:30 AM EST [facility] - Outpatient PHYSICAL THERAPY DAILY TREATMENT NOTE - OP Date: 03/16/2025 Visit Number: 2 Patient Name: Ruy Nolen : 1985 Age: 39 y.o. Gender: male Diagnosis: ICD-10-CM ICD-9-CM 1. Acute pain of left knee M25.562 719.46 Date of Onset/Surgery: 02/12/2025 Referring Provider: Leyda Marte MD Insurance: Payor: [employer] PLAN / Plan: WELLSENSE MEDICAID / Product Type: *No Product type* / Patient Identified by: Norma Jeronimo PT Language: Speaks and understands Azeri as preferred language with no acoustical engineer required Medications: Medications Ordered Prior to Encounter[1] Allergies: has no known allergies. Precautions: R SI joint dysfunction may limit his ability to do certain exercises (very painful andis getting surgery on it in March), Rheumatoid Arthritis- multiple joint pain Fall risk: Assistive devices available to patient- uses a crutch for walking because of R SI pain SUBJECTIVE Subjective Report: Knee is about the same. Did his exercises and they feel alright. Chart Reviewed: Yes Pain: 08/06 walking TREATMENT INTERVENTION: Supine L quad set x 10, 5 sec hold Supine L straight leg raise x 10 Supine L straight leg raise with slight ER x 5 (slight increased pain medial aspect of knee) Supine L heel slides with strap x 10 Supine L hip abduction slide x 10 Hooklying L hip abduction iso blue theraband (therapist anchor) x 10, 5 sec hold Supine L hamstring set (at about 60 deg flex) x 7, 5 sec hold- discontinued due to knee pain Seated L LAQ partial ROM x 10 Ice post session to L knee x 10 min (no charge) Home exercise program Supine L quad set x 10, 5 sec hold Supine L straight leg raise x 10, 1-2 sec hold Supine L heel slides with strap x 10, 1-2 sec hold Supine L hip abduction slide x 10 ASSESSMENT/Response to Treatment Good Painful with certain exercises in knee (see comments above). Some limitations with exercises due to hip issues. Patient Education: Education provided: home exercise program Education Provided To: Patient utilizing Explanation mode(s) of education Response to Education: Verbal Understanding PLAN POC Development/Review: No Change in the Plan of Care; Participants: Patient Interventions Time Entry: Modalities: Therapeutic procedures: Therapeutic Exercise Time Entry: 23 Total Treatment Time: 33 Documentation completed by Norma Jeronimo PT [1] Current Outpatient Medications on File Prior [...] Info) Description 03/23/2025 7:30 AM EST Treatment [facility] [address] [phone] Maurilio Denney, GENETICS PHYSICIAN 03/30/2025 8:30 AM EST Treatment [facility] [address] [phone] Michael Damian, GENETICS PHYSICIAN 04/01/2025 7:30 AM EST Treatment [facility] [address] [address] Maurilio Denney, GENETICS PHYSICIAN 04/06/2025 8:00 AM EST Treatment [facility] [address] [address] Maurilio Denney, GENETICS PHYSICIAN 04/06/2025 9:00 AM EST Office Visit Orthopedic Surgery [facility] [address] [phone] Leyda Marte MD [address] [address] 04/13/2025 7:30 AM EST Treatment [facility] [address] [phone] Maurilio Denney, GENETICS PHYSICIAN 04/15/2025 7:30 AM EST Treatment [facility] [address] [phone] Norma Jeronimo, PT 04/20/2025 7:30 AM EST Treatment [facility] [address] [phone] Norma Jeronimo, PT 05/10/2025 9:00 AM EST Office Visit Orthopedic Surgery [place] [address] [phone] Ru Ivan, DPM [address] [phone] Scheduled Procedures Name Priority Associated Diagnoses Date/Ti [...] left knee- Primary documented in this encounter Care Teams Air Brake Operator Relationship Specialty Start Date End Date Cynthia Hall MD [address] [place] [address] PCP - General 02/11/24 documented as of this encounter
--- OUTSIDE RECORDS SUMMARY | 2025-03-16 10:45 | XMS_ITS | Encounter Summary ---
Author Organization [facility] Address [address] [place] [address] Care Team Providers Care Cooperative Manager Name Role Phone Cynthia Hall MD Primary Care Prov ider Reason for Referral * Consultation (Urgent) - Pending Review Specialty Diagnoses / Procedures Referred By Contact Referred To Contact Physical Medicine and Rehabilitation Diagnoses Chronic pain of left knee Neuropathy Leyda Marte MD [address] [address] Phone: tel: fax: Lani Johnson MD [address] [place] [phone] Phone: tel: Referral ID Status Reason Start Date Expiration Date Visits Requested Visits Authorized [id number] Pending Review Specialty Services Required 03/16/2026 1 1 * Imaging (Routine) - Pending Review Specialty Diagnoses / Procedures Referred By Contac t Referred To Contact Radiology Diagnoses Chronic pain of left knee Neuropathy Procedures MR Knee wo Contrast Left Leyda Marte MD 175 [facility] 160 [place] [address] Phone: tel: fax: [facility] [address] [place] [address] Phone: tel: Referral ID Status Reason Start Date Expiration Date V isits Requested Visits Authorized [id number] Pending Review 03/16/2025 03/16/2026 1 1 Reason for Visit * Reason Comments Follow-up Left knee pain Encounter Details Date Type Department Care Team ([facility] Contact Info) Description 03/16/2025 10:45 AM EST Office Visit Orthopedic [facility] 160 175 [facility] 160 [place] [phone] Leyda Marte MD 175 [facility] 160 [place] [address] Chronic pain of left knee (Primary Dx); Neuropathy Social History Tobacco Use Types Packs/Day Years [...] AM EST documented as of this encounter Last Filed Vital Signs Vital Sign Reading Time Taken Comments Blood Pressure - - Pulse - - Temperature - - Respiratory Rate - - Oxygen Saturation - - Inhaled Oxygen Concentration - - Weight 77.1 kg (170 lb) 03/16/2025 10:54 AM EST Height 170.2 cm (5' 7.01 ) 03/16/2025 10:[address] Body Mass Index 26.62 03/16/2025 10:54 AM EST documented in this encounter Ordered Prescriptions Prescription Sig Dispense Quantity Refills Last Filled Start Date End Date gabapentin (NEURONTIN) 300 mg capsule Take 1 capsule (300 mg total) by mouth 3 (three) times a day. Start with 1 tablet once a day x 3 days, then increase to 1 tablet twice a day x 3 days then increase to 1 tablet 3 times a day 90 capsule 1 03/16/2025 documented in this encounter Plan of Treatment Upcoming Encounters Date Type Department Care Team ([facility] Contact Info) Description 03/23/2025 7:30 AM EST Treatment [facility] [address] [phone] Maurilio Denney, WASTE DISPOSAL LEAKAGE TESTER 03/30/2025 8:30 AM EST Treatment [facility] [address] [address] Michael Damian, WASTE DISPOSAL LEAKAGE TESTER 04/01/2025 7:30 AM EST Treatment [facility] [address] [phone] Maurilio Denney, WASTE DISPOSAL LEAKAGE TESTER 04/06/2025 8:00 AM EST Treatment [facility] [address] [phone] Maurilio Denney, WASTE DISPOSAL LEAKAGE TESTER 04/06/2025 9:00 AM EST Office Visit Orthopedic [facility] 160 175 [facility] 160 [place] [phone] Leyda Marte MD 175 [facility] 160 [place] [address] 04/13/2025 7:30 AM EST Treatment [facility] [address] [address] Maurilio Denney, WASTE DISPOSAL LEAKAGE TESTER 04/15/2025 7:30 AM EST Treatment [address] [phone] Norma Jeronimo, PT 04/20/2025 7:30 AM EST Treatment [facility] Outpatient [facility] [address] [address] Norma Jeronimo, PT 05/10/2025 9:00 AM EST Office Visit Orthopedic [facility] 250 175 [facility] 250 [place] [phone] Ru Ivan DPM [address] [phone] Scheduled Orders Name Type Priority Associated Diagnoses Orde r Schedule MR Knee wo Contrast Left Imaging Routine Chronic pain of left knee Neuropathy Expected: 03/16/2025, Expires: 03/16/2026 Scheduled Procedures Name Priority Associated Diagnoses Date/Ti me ARTHRODESIS METATARSOPHALANGEAL Hallux rigidus of left foot Disorder of ligament of foot, left Scheduled Referrals Name Type Priority Associated Diagnoses Order Schedule Ambulatory referral to Physical Medicine Rehab Outpatient Referral Routine Chronic pain of left knee Neuropathy 1 Occurrences starting 03/16/2025 until 03/16/2026 documented as of this encounter Goals Goal Patient Goal Type Associated Problems Recent Progress Patient-Stated? Author <enter goal here> General Improving( 9:09 AM EDT) Yes Gregoria Chavira, OT Note: OT PATIENT GOAL HAVE LESS PAIN WITH DAILY ACTIVITIES documented as of this encounter Visit Diagnoses Diagnosis Chronic pain of left knee- Primary Neuropathy Mononeuritis of unspecified site documented in this encounter Historical Medications * This list may reflect changes made after this encounter. predniSONE (DELTASONE) 20 mg tablet Take 1 tablet (20 mg total) by mouth 1 (one) time each day. added in this encounter Care Teams Cooperative Manager Relationship Specialty Start Date End Date Cynthia Hall MD [address] [place] [address] PCP - General 02/11/24 documented as of this encounter
--- OUTSIDE RECORDS SUMMARY | 2025-03-17 08:03 | XMS_ITS | Clinical Summary ---
Author Organization 175 [facility] Address 175 [place] [address] Phone Care Team Providers Care Commission Specialist Name Role Phone Cynthia Hall MD Primary Care Prov ider Allergies No known active allergies Medications DULoxetine (CYMBALTA) [address] capsule Take 1 capsule (60 mg total) by mouth 1 (one) time each day. Do not crush or chew. 90 capsule 1 5 06/13/19 26 Active predniSONE (DELTASONE) 20 mg tablet Take 1 tablet (20 mg total) by mouth 1 (one) time each day. Active gabapentin (NEURONTIN) 300 mg capsule Take 1 capsule (300 mg total) by mouth 3 (three) times a day. Start with 1 tablet once a day x 3 days, then increase to 1 tablet twice a day x 3 days then increase to 1 tablet 3 times a day 90 capsule 1 5 04/15/20 25 Active predniSONE (DELTASONE) 20 mg tablet Take 3 tablets (60 mg total) by mouth 1 (one) time each day for 3 days, THEN 2 tablets (40 mg total) 1 (one) time each day for 3 days, THEN 1 tablet (20 mg total) 1 (one) time each day for 3 days. 18 each 5 03/03/20 25 Hospital, Clinic, or Other Facility Administered Medication Ordered Dose Route Frequency Start Date End Date Status lidocaine (XYLOCAINE) 1 % injection 4 mLIndications:Acute pain of left knee 4 mL Once PRN Procedure 03/01/2025 03/01/2025 Ended triamcinolone acetonide (KENALOG-40) 40 mg/mL injection 40 mgIndications:Acute pain of left knee 40 mg Once PRN Procedure 03/01/2025 03/01/2025 Ended Active Problems Problem Noted Date Diagnosed Date Extensor carpi ulnaris tendinitis 01/29/2025 Tear of right acetabular labrum 12/10/2024 Femoroacetabular [...] lumbar reg ion 11/25/2024 Assessment & Plan (01/07/2025 10:13 PM EDT): Patient follows up today to go over EMG results, 01/04/2025 [facility], which showed mild bilateral lateral femoral cutaneous neuropathy. Patient denies wearing any tight clothing or heavy belts at work, is not overweight. He has tried many conservative treatments without improvement of his severe right low back, SI region and hip pain. I have reviewed his lumbar spine MRI with Dr. Tello in the recent past twice, again I reviewed his MRI with Dr. Tello while he was here in the office given his persistent severe right low back/SI joint pain, at times pain lateral right leg, left anterior thigh pain, we do not see any stenosis or nerve root compression, overall shows healthy disks/spine. We talked about diagnosis of meralgia paresthetica and SI joint pain, patient has not seen any improvement with SI joint injections x 2. He may want to follow-up with Dr. Rodriguez to get further eval of SI joint pain. Dr. Tello is not recommending any lumbar spine surgery. He also is likely to follow-up with sports medicine at [facility], possible hip arthroscopy. (Orthopedics did recommend he get hip pathology checked in telephone encounters in [facility]). I asked him to call with any additional questions or concerns. Assessment & Plan (11/25/2024 11:14 AM EDT): [...] An MRI of the lumbar spine from [place] dated June 08, 2024 reveals mild degenerative [...] (03/02/2024): sensory neuropathy ; provider [address] [facility]- sports medicine Degenerative arthritis of me tacarpophalangeal [...] Encounters Date Type Department Care Team Description 03/16/2025 10:45 AM EST Office Visit Orthopedic Surgery [facility] [address] [phone] Leyda Marte MD Chronic pain of left knee (Primary Dx); Neuropathy 03/16/2025 7:30 AM EST Treatment [address] [phone] Norma Jeronimo, PT Acute pain of left knee (Primary Dx) 03/15/2025 5:00 PM EST Evaluation [address] [phone] Norma Jeronimo, PT Acute pain of left knee (Primary Dx) 03/01/2025 2:30 PM EST Consult Orthopedic [facility] [address] [phone] Leyda Marte MD Acute pain of left knee (Primary Dx) 02/22/2025 2:35 PM EDT - 02/22/2025 11:59 PM EDT Hospital [facility] [address] [place] [address] Acute pain of left knee Discharge Disposition: Home or Self Care 02/22/2025 2:15 PM EDT Office Visit Walk-In Clinic - [address] [phone] Howie Snider PA Acute pain of left knee (Primary Dx) 02/22/2025 Telephone Adult Medicine - [address] [phone] Cynthia Hall MD 02/04/2025 8:45 AM EDT Office Visit Orthopedic Surgery [facility] 250 175 [facility] 250 [place] [phone] Ru Ivan, DPM Hallux rigidus of left foot (Primary Dx) 01/29/2025 10:15 AM EDT Office Visit Orthopedic [facility] 175 [facility] [address] [place] [phone] Lisa Starks MD Extensor carpi ulnaris tendinitis (Primary Dx) 01/15/2025 Telephone Neurosurgery [facility] 175 [facility] 300 [place] [phone] Geovanna Trujillo MA 01/14/2025 Telephone Orthopedic Surgery [facility] 175 [facility] [address] [place] [phone] Lisa Starks MD 01/07/2025 1:30 PM EDT Office Visit Neurosurgery [facility] [address] [phone] Jennifer Mcgraw PA Other spondylosis with radiculopathy, lumbar region (Primary Dx) 12/24/2024 Telephone Orthopedic Surgery [facility] [address] [phone] Lisa Starks MD 12/24/2024 Telephone Neurosurgery [facility] [address] [phone] Jeninfer Mcgraw PA 12/24/2024 Telephone [facility] [address] [place] [address] Cynthia Hall MD 12/24/2024 Telephone Orthopedic Surgery [facility] 160 175 [facility] 160 [place] [phone] Leyda Marte MD 12/23/2024 9:15 AM EDT Office Visit Orthopedic [facility] 250 175 [facility] [address] [place] [phone] Ru Ivan, DPM Hallux rigidus of left foot (Primary Dx); Hallux rigidus of right foot 12/23/2024 Telephone Orthopedic Surgery [facility] 160 175 [facility] 160 [place] [phone] Leyda Marte MD 12/21/2024 4:00 PM EDT Ancillary Procedure Orthopedic Surgery [facility] 160 175 [facility] 160 [place] [phone] 12/21/2024 4:00 PM EDT Procedure visit Orthopedic Surgery [facility] 160 175 [facility] 160 [place] [phone] Leyda Marte MD Right hip pain; Femoroacetabular impingement of right hip; Tear of right acetabular labrum, subsequent encounter 12/16/2024 Telephone Orthopedic Surgery [facility] [address] [phone] Ru Ivan, EMILY 12/15/2024 2:30 PM EDT Office Visit Adult Medicine [address] [phone] Lance Mcnamara PA Fibromyalgia (Primary Dx); Tear of right acetabular labrum, subsequent encounter; Hallux rigidus of left foot from Last 3 Months Immunizations Immunization Administration Dates Next Due DTP 12/27/1989 DTaP (Infanrix) 6wks to less than 7yo ,11/11/1986,1985,1985,1985 DTaP / Hib 12/27/1989, 7,1985,1985,1985 [id number] (Pentacel) 2mo to less than 5yo 06/21/1987 Hepatitis A Adult (Havrix; V aqta) 19yo and older 09/27/2003 Hepatitis A Pediatric (Havri x; Vaqta) 12mo to less than 19yo 03/06/2006 Hepatitis A Vaccine, Pediatr ic Dosage, Unspecified Formulation 03/06/2006 Hepatitis B (Pmpjgxp-K-Nwnaw , Recombivax HB-Adult) 19yo and older 05/05/1996,04/07/1996 [...] History Surgery Date Site/Laterality Comments HAND SURGERY [id number] House - thumb, index, fourth, and fifth torn ligaments from injury KNEE SURGERY right WRIST SURGERY Left 2x HAND SURGERY -[id number] tumor removed SHOULDER SURGERY Right FINGER SURGERY 01/08/2024 Right long finger; arthrotomy and joint debridement ROTATOR CUFF REPAIR MENISCECTOMY CARPAL TUNNEL RELEASE FINGER SURGERY 08/06/2024 Right MCP arthroplasty Medical History Medical History Date Comments Meningitis Neuropathy sensory neuropat hy [place]Schlatter[place] disease Fibromyalgia PONV (postoperative nausea and vomiting) [...] Sign Reading Time Taken Comments Blood Pressure 115/76 02/22/2025 2:20 PM EDT Pulse 97 02/22/2025 2:20 PM EDT Temperature 36.8 C (98.2 F) 02/22/2025 2:20 PM EDT Respiratory Rate 20 02/22/2025 2:20 PM EDT Oxygen Saturation 97% 02/22/2025 2:20 PM EDT Inhaled Oxygen Concentration - - Weight 77.1 kg (170 lb) 03/16/2025 10:54 AM EST Height 170.2 cm (5' 7.01 ) 03/16/2025 10:[address] Body Mass Index 26.62 03/16/2025 10:54 AM EST Plan of Treatment Upcoming Encounters Date Type Department Care Team (Late st Contact Info) Description 03/23/2025 7:30 AM EST Treatment [facility] [address] [phone] Maurilio Denney, THERAPEUTIC SUPPORT STAFF 03/30/2025 8:30 AM EST Treatment [facility] [address] [phone] Michael Damian, THERAPEUTIC SUPPORT STAFF 04/01/2025 7:30 AM EST Treatment [facility] [address] [phone] Maurilio Denney, THERAPEUTIC SUPPORT STAFF 04/06/2025 8:00 AM EST Treatment [facility] [address] [phone] Maurilio Denney, THERAPEUTIC SUPPORT STAFF 04/06/2025 9:00 AM EST Office Visit Orthopedic Surgery [facility] 160 175 [facility] 160 [place] [address] Leyda Marte MD 175 [facility] 160 [place] [address] 04/13/2025 7:30 AM EST Treatment [facility] [address] [phone] Maurilio Denney, THERAPEUTIC SUPPORT STAFF 04/15/2025 7:30 AM EST Treatment [facility] [address] [phone] Norma Jeronimo, PT 04/20/2025 7:30 AM EST Treatment [facility] [address] [phone] Norma Jeronimo, PT 05/10/2025 9:00 AM EST Office Visit Orthopedic Surgery [facility] 250 175 [facility] 250 [place] [phone] Ru Ivan, DPM 175 [facility] 250 [place] [phone] Scheduled Procedures Name Priority Associated Diagnoses Date/Ti me ARTHRODESIS METATARSOPHALANGEAL Hallux rigidus of left foot Disorder of ligament of foot, left Health Maintenance Due Date Last Done Comments HPV Vaccines (1 - 3-dose SCDM series) 2012 Cholesterol Screening (Lipid Panel) 04/01/2022 12/01/2012 HIV Screening 04/01/2022 Hepatitis C Screening 04/01/2022 Social Influencers of Health Screening 04/01/2022 Depression Screening 04/29/2024 10/08/2023 COVID-19 Vaccine ( season) 2024 02/07/2021, 01/10/2021 Influenza Vaccine (#1) 2024 03/06/2006, 2005 DTaP,Tdap,and Td Vaccines (8 - Td or Tdap) 08/19/2033 08/20/2023, 09/14/2011, 12/27/1989, Additional history exists RSV Immunization Adult Patients (1 - 1-dose 75+ series) 2060 HIB Vaccines Completed 12/27/1989, 05/31, 06/21/1987, Additional history exists IPV Vaccines Completed 12/27/1989, 05/31, 11/18/1986, Additional history exists MMR Vaccines Completed 12/05/1990, 08/09/1986 Hepatitis B Vaccines Completed 08/11/1996, 05/05/1996, 05/05/1996, Additional history exists Hepatitis A Vaccines Completed 03/06/2006, 03/06/2006, 09/27/2003 Meningococcal ACWY Vaccine Aged Out N o [...] DAILY ACTIVITIES Medical Devices Implanted Type Area Medical Services Manager Device Identifier Shelf Expiration Date Model / Serial / Lot Pre Flex Metacarpophlangeal Implant Implanted:Qty: 1 on 08/06/2024 by Lisa Starks MD at [facility] Right: Middle Finger [employer] [id number] 07/14/2026 MCPX-40 / N/A / [id number] Procedures Procedure Name Priority Date/Time Associated Diagnosis Comments SD ARTHROCENTESIS/ASPIRATI ON/INJECTION MAJOR JOINT/BURSA W/O U/S GUIDANCE Routine 03/01/2025 2:30 PM EST Acute pain of left knee XR KNEE 4+ VIEWS LEFT Routine 02/22/2025 2:46 PM EDT Acute pain of left knee SD ARTHROCENTESIS/ASPIRATI ON/INJECTION MAJOR JOINT/BURSA W/O U/S GUIDANCE Routine 12/21/2024 4:00 PM EDT Right hip pain US ARTHROCENTESIS ASP INJ JOINT MAJOR RIGHT Routine 12/21/2024 3:57 PM EDT Right hip pain HM DEPRESSION SCREENING Routine 10/08/2023 LIPID PANEL Routine 12/01/2012 from Last 3 Months or Most Recently Relevant to Health Maintenance Results * SD ARTHROCENTESIS/ASPIRATION/INJECTION MAJOR JOINT/BURSA W/O U/S GUIDANCE (03/01/2025 2:30 PM EST) Narrative Leyda Marte MD - 03/01/2025 2:30 PM EST Leyda Marte MD 03/01/2025 3:48 PM L Inj/Asp: L knee Indications: pain and diagnostic evaluation Details: 22 G needle, anterolateral approach Medications: 4 mL lidocaine 1 %; 40 mg triamcinolone acetonide 40 mg/mL Informed Consent: Laterality: Left Relevant images/test results available and reviewed: yes Health status cleared: Yes Procedure/treatment, purpose, treatment alternatives, risks/potential complications and benefits explained: yes Risk/complications/benefits details: Risks include bleeding, infection, increase in pain Patient questions answered: yes Patient agrees, verbalizes understanding, and wants to proceed: yes Consent given by: Patient Informed consent discussion completed by Physician/RIAZ with patient: Verbal Pre-procedure timeout performed: yes Leyda Marte MD IN CLINIC/BEDSIDE ORDERABLES F inal Result * XR Knee 4+ Views Left (02/22/2025 2:46 PM EDT) Anatomical Region Laterality Modality Lower Extremities, Knee [facility] 02/22/2025 11:1 1 PM EDT Narrative 02/22/2025 11:12 PM EDT Left kidney, 4 views. History knee pain. There is marked infrapatellar soft tissue swelling. There are arm bony structures in the arm anterior infrapatellar region probably unfused anterior tibial tubercle there is trace effusion. CONCLUSIONS: Marked infrapatellar soft tissue swelling. Unfused anterior tibial tubercle -------- FINAL REPORT -------- Dictated By: Louise Miramontes Dictated Date: 02/22/2025 23:11 ET Assigned Physician: Louise Miramontes Reviewed and Electronically Signed By: Louise Miramontes Signed Date: 02/22/2025 23:12 ET Workstation ID: [id number] Transcribed By: Self Edit Transcribed Date: 02/22/2025 23:11 ET Procedure Note Louise Miramontes MD - 02/22/2025 Left kidney, 4 views. History knee pain. There is marked infrapatellar soft tissue swelling. There are arm bonystructures in the arm anterior infrapatellar region probably unfusedanterior tibial tubercle there is trace effusion. CONCLUSIONS: Marked infrapatellar soft tissue swelling. Unfused anteriortibial tubercle -------- FINAL REPORT -------- Dictated By: Louise Miramontes Dictated Date: 02/22/2025 23:11 ET Assigned Physician: Louise Miramontes Reviewed and Electronically Signed By: Louise Miramontes Signed Date: 02/22/2025 23:12 ET Workstation ID: [id number] Transcribed By: Self Edit Transcribed Date: 02/22/2025 23:11 ET Howie HERNÁNDEZ IMG XR PROCEDURES Final Result * SD ARTHROCENTESIS/ASPIRATION/INJECTION MAJOR JOINT/BURSA W/O U/S GUIDANCE (12/21/2024 4:00 PM EDT) Narrative Leyda Marte MD - 12/21/2024 4:00 PM EDT Leyda Marte MD 12/21/2024 5:35 PM L Inj/Asp: [...] by: Patient Informed consent discussion completed by Physician/RIZA with patient: Verbal Pre-procedure timeout performed: yes Result [facility] Leyda Marte MD IN CLINIC/BEDSIDE ORDERABLES F [...] taken and are permanently stored and retrievable. Result [facility] Leyda Marte MD [facility] US PROCEDURES Final Result * Depression Screening (10/08/2023) Pathologist [facility] Depression Screening Abstracted Result [facility] Megan Marr MD HEALTH MAINTENANCE Final Result * Lipid panel (12/01/2012) Pathologist [facility] Cholesterol 150 0 - 200 mg/dL LDL Cholesterol 78 0 - 100 mg/dL Blood Venous blood specimen / Unknown Result [facility] Megan Marr MD LAB BLOOD ORDERABLES Prudence l Result from Last 3 Months or Most Recently Relevant to Health Maintenance Insurance Advance Directives * Full Code - Default [...] currently active code status orders. Care Teams Commission Specialist Relationship Specialty Start Date End Date Cynthia Hall MD [address] [place] [phone] PCP - General 02/11/24
--- OUTSIDE RECORDS SUMMARY | 2025-03-17 08:03 | XMS_ITS | Clinical Summary ---
Author Organization [facility] Address [address] [place] [phone] Phone Care Team Providers Care Casting Inspector Name Role Phone Cynthia Hall MD Primary [...] file Medical Devices Not on file Insurance [facility] Care Teams Casting Inspector Relationship Specialty Start Date End Date Cynthia Hall MD [address] [place] [phone] PCP - General Internal Medicine 09/07/24 Additional Source Comments The information contained in this document represents components of the legal health record. It is not the complete legal health record.[facility]
[2025-04-06 14:43] VITALS: BMI 27.9
--- NOTE | 2025-04-06 14:54 | HO.ANESPROP2 ---
HPI - Anesthesia Eval Consult details Narrative: 39yo M for Right Sacroiliac Joint Fusion PONV - good effect with scop patch in past PMFSH Active Problems Active Problems: All Active Problems Sacroiliitis, not elsewhere classified (Acute) Lumbar facet joint pain (Acute) Past Medical History Medical History (Updated 04/06/25 @ 14:43 by Maria Fernanda Merida, RN) Hx of bacterial meningitis (~2003) Back pain Osteoarthritis Renal cyst Ambulates with cane Weakness of both legs Fibromyalgia Postoperative nausea Surgical History Surgical History (Updated 04/06/25 @ 14:41 by Maria Fernanda Merida, RN) Hx of hand surgery (07/2024) History of arthroscopic surgery of shoulder History of surgical removal of ganglion cyst Social History Social History (Updated 04/06/25 @ 14:46 by Maria Fernanda Merida, RN) Household Members: Family Housing: House Are you a primary furnace caretaker to a significant other at home: Yes (family, and 3 sons) Do you presently have visiting nurse or other home services: No Patient Tobacco Use Status: Never used Tobacco Meds Allergies Allergy/AdvReac Type Severity Reaction Status Date / Time No Known Allergies Allergy Verified 04/08/25 10:57 Home Medications ?Medication ?Instructions ?Recorded ?Confirmed ?Last Taken ?Type duloxetine 60 mg capsule,delayed 60 mg PO DAILY 04/06/25 04/08/25 04/07/25 History release gabapentin 300 mg capsule 300 - 1,200 mg PO BEDTIME 04/08/25 04/08/25 04/07/25 History Exam Height,Weight and Vital Signs: Height 5 ft 7 in Weight 80.739 kg Assessment and Plan Assessment Anesthesia Assessment: Chart Reviewed
[2025-04-08] VITALS (14 sets, daily range): BP systolic 95–136; BP diastolic 57–95; PULSE 64–81; RESP 11–19; TEMP 36.3–36.7; O2SAT 92–100; BMI 26.1
--- NOTE | ~2025-04-08 | FL_ITS ---
EXAMINATION: XR FLUOROSCOPY WITH IMAGES CLINICAL INFORMATION: Right SI joint fusion COMPARISON: None available. TECHNIQUE: Fluoroscopy time: 22 seconds DAP: 7.4 mGy Images: 6 FINDINGS: Fluoroscopy provided for right SI joint surgery. No radiologist present. FL/FL guidance in OR IMPRESSION: Fluoroscopy provided for procedure. See procedure report for details. Electronically signed by: Jarvis Shabazz MD 04/08/2025 01:19 PM [facility]
--- NOTE | 2025-04-08 11:01 | MHC.SHP ---
Pre-Procedural Eval Section A - 24 Hr Update-Section A only Date of Service: 04/08/25 The patient is an INPATIENT: No Section B - Complete if H&P > 30 days Chief Complaint: Sacroiliitis, not elsewhere classified Details of Present Illness: Right SI joint pain Allergies: Allergies Allergy/AdvReac Type Severity Reaction Status Date / Time No Known Allergies Allergy Verified 04/08/25 10:57 Review of Systems Sugical H&P ROS: Negative: Constitution, Cardiovascular, Respiratory, Neurological, Psychiatric, Hem-Onc, Allergic/Immunologic, Gastrointestinal, Genitourinary, Musculoskeletal, Integumentary, Endocrine and Eyes/Ears/Nose/Throat Exam Surgical H&P Exam: Normal: HEENT, Normal: Heart, Normal: Lungs, Normal: Extremities, Normal: Abdomen, Normal: Skin and Normal: Neurological (Wake, alert) Plan Diagnosis/Plan: Unchanged I have reviewed the history and physical and performed a pertinent physical examination on my patient. No changes have occurred unless specified. Right SI joint fusion Time Spent With Patient Time: Total time managing care of this patient today ___5_ minutes.
[2025-04-08] MEDS: Lactated Ringers 1,000 ML 100 ML IVCONT ×2 (11:37→15:37)
--- NOTE | 2025-04-08 12:01 | P.OP_ITS ---
Operative Note Operative Note Date of Service: 04/08/25 Narrative: Preoperative diagnosis: Right Sacroiliitis Postoperative diagnosis: Same Operative procedure: Arthrodesis, sacral iliac joint, minimally invasive with image guidance, including obtaining bone graft, unilateral; placement of transarticular device piercing the medial cortices of the ilium lateral cortex of the sacrum Surgeon: Noel Rodriguez MD, PhD Fire Equipment Inspector Helper: Lance Santos PA-C Anesthesia: General Description of procedure: The patient is suffering from right SI joint dysfunction refractory to nonoperative management. The patient has tried and failed all forms of conservative manage med except for an excellent short-term response to a sacroiliac joint injection. The sacroiliac joint was confirmed to be the pain generator after repeated pain blocks. The patient was offered surgical treatment with fixation and arthrodesis of the SI joint. The patient was brought to the operating room and endotracheally intubated. The patient was turned in a prone position on Chris spine table. Prepping and draping was done followed by a time-out. A C-arm was alternately positioned for lateral, oblique oblique and pelvic inlet and outlet projections througout the procedure. Skin markings were made for the anticipated position of the implant. A 2.5 cm longitudinal skin incision was made. A guide pin was inserted in an inlet oblique image for guidance follow-up insertion of dilator and working cannula. This was secured by placing an anchor pin into the ilium. Consideration was taken to cut channels utilizing a series of drills for decortication and internal fixation device placement. The implant was inserted such that it passed through the ilium from medial to lateral, across the sacroiliac joint and into the lateral part of sacrum, thus transfixing the sacroiliac joint. Proper positioning was confirmed on inlet oblique image and lateral fluoroscopy. The implant was packed with autologous bone collected from remain of the sacrum and ilium. Additional graft material was inserted into the channel void following the implant. The instruments were withdrawn. Upon completion, final images were obtained that showed a satisfactory position of the implant. Hemostasis was done. The incision was closed with an 0 Vicryl to fashion a 3-0 Vicryl subdermal layer after injecting Marcaine. Dermabond was used to approximate the surgeon. All sponge and needle counts were correct. Patient was extubated and transported in a stable condition to recovery room. Estimated blood loss: 15 Operative time:20 min Complications: None Disposition: Discharge to home
--- NOTE | 2025-04-08 12:48 | P.DS_ITS ---
DS: Providers Provider Date of discharge: 04/08/25 Primary care physician: Cynthia Hall MD DS: Summary Time Attestation Discharge Coordination Time (in mins): 15 Quality: Safe Use of Opioids Does Pt have an Active Cancer Diagnosis on the Problem List?: No Quality: Stroke Does the patient have a stroke diagnosis?: No Physical Exam Vital Signs: Vital Signs: Last Vital Signs Temp 97.5 F 04/08/25 11:14 Pulse 79 04/08/25 11:14 Resp 18 04/08/25 11:14 BP 130/75 04/08/25 11:14 Pulse Ox 100 04/08/25 11:14 O2 Del Method Room Air 04/08/25 11:14 BMI result Body Mass Index 26.1 Discharge Plan Discharge Patient Disposition: Home, Self-Care Referrals: Cynthia Hall MD [Primary Care Provider, Internal Medicine] - 1 Week Discharge Medications: New oxycodone 5 mg tablet 5 mg PO Q6H PRN (Reason: pain) Qty: 20 0RF Rx Instructions: Partial Fill upon patient request. Continued duloxetine 60 mg Capsule,Delayed Release(Dr/Ec) 60 mg PO DAILY gabapentin 300 mg capsule 300 - 1,200 mg PO BEDTIME Rx Instructions: pt states he takes twice per day. one capsule in AM, two capsules at HS Discharge Orders: Discharge Order (Routine); Ordered 04/08/25 Ordered By: Aguila Ruvalcaba Diet: Advance to usual diet Activity on Discharge: As tolerated Activity Restrictions/Additional Instructions: After your spinal surgery we ask you to observe the following restrictions/guidelines: Activity: It is normal to feel some discomfort as you increase your activity, but that will improve with time. We ask you avoid heavy lifting or acitivities that cause pain. As a general rule, 8lbs is a safe limit for lifting right after surgery. Walk as much as you feel comfortable but not to exhaustion. You will feel extra tired the first few days after surgery. Stay well hydrated. It is OK to walk up and down stairs You may return to driving when you are off narcotics (such as vicodin, oxycodone, dilaudid, etc), and you are back to normal functional capacity. If you have any concerns please check with office before driving. Return to work is specific to each patient and each surgery, so please speak with your doctor/PA at first follow up. Please bring paperwork such as FMLA at that time if you need it filled out. Medications: We recommend you take 500mg Tylenol every 4 hours for the first week after surgery, if you do not have any liver issues and can tolerate this medication. Do not exceed 4,000mg daily. We also recommend you take Ibuprofen 600mg every 8 hours for the first week after surgery starting on post op day 1, ?if you do not have any kidney or sugar control issues and can tolerate this medication. Do not exceed 2,000mg daily. We will give you a short supply of narcotics after surgery (usually one weeks worth). If you need more please call the office but do not use more than prescribed. You will need to give our office 48 hours notice if you need narcotics refilled and we do not fill narcotics on weekends or evenings. If you are on a narcotic, it is a good idea to take a stool softener such as colace or senna to avoid constipation If you take blood thinner such as aspirin, Plavix, Coumadin, Effient, Eliquis etc for conditions such as Afib, DVT, Pulmonary embolus, coronary disease, stents etc please speak with your surgeon about specific details as to when you can resume these medications. You can resume NSAIDs on post op day 1 (eg: Motrin, Naproxen, etc). Follow up: Please call the office, , after surgery to arrange a 3 week follow up for wound check. Wound Care: You may remove your dressing on the first day after surgery. ?You may ?leave open to air. Please do not remove the steri strips underneath. they will fall off on their own in one week. IT IS NORMAL FOR THE WOUND TO OOZE OR BE BLOODY FOR A FEW DAYS AFTER SURGERY. ?IF THIS HAPPENS JUST PLACE NEW DRESSING OVER IT TO AVOID STAINING CLOTHES. You may shower on post op day # 1 We ask that you do not let the water soak the wound. If it does get wet, just towel dry lightly. Please do not scrub your incision or place any type of chemical/ointment on the wound. No tub baths, pools or jacuzzis for one month. If you have any leaking or redness from your wound, or fevers, please call the office. Print Language: Nepali
== END 2025-04-08 16:52 | disposition home or self-care (01) ==
PROVIDERS: PCP Internal Medicine; Visit Provider Neurological Surgery
PROC: (CPT 27279; principal; 2025-04-08 12:30)
DX: M46.1 Sacroiliitis, not elsewhere classified (principal); M53.3 Sacrococcygeal disorders, not elsewhere classified; M79.7 Fibromyalgia; M54.50 Low back pain, unspecified; Z99.89 Dependence on other enabling machines and devices
CPT/HCPCS: 27279; C1713; J0131; J0690; J1171; J1630; J1885; J2003; J2371; J2405; J2704; J3010; L8699

== ENCOUNTER → 2025-04-08 10:33 | Outpatient (BNV) | payer OTHER, SELFPAY | PROVIDERS: PCP Internal Medicine; Visit Provider Physician Assistant | DX: M46.1 Sacroiliitis, not elsewhere classified (principal) | CPT/HCPCS: 27279; 99499 ==

== ENCOUNTER 2025-04-14 09:51 | Outpatient (REF) | payer OTHER, SELFPAY ==
--- NOTE | 2025-04-14 09:54 | EMG_ITS ---
Chief complaint: Acute on chronic left lateral knee numbness and allodynia First happened many years ago but would only occur sporadically. 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 Has had burning sensation since then. Two weeks ago, again twisted left knee which exacerbated allodynia. Recent right sacroiliac arthrodesis, good recovery. EMG bilateral lower extremity done by Dr. Paulino 01/04/2025, but this was prior to incidentally months ago. Reason for referral: Evaluate for peroneal neuropathy Referred by: Dr. Marte Procedure done: Left lower extremity NCS/EMG Precautions and/or limitations: None The limb temperature was monitored continuously and remained between 32-36 degrees C during the performance of the NCS. Nerve Conduction Studies Anti Sensory Summary Table ?Stim Site NR Onset (ms) Norm Onset (ms) Peak (ms) Norm Peak (ms) O-P Amp (?V) Norm O-P Amp Site1 Site2 Delta-0 (ms) Dist (cm) Lemuel (m/s) Norm Lemuel (m/s) Left Sup Peron Anti Sensory (Ankle) Lateral Leg ? 1.9 3.0 <4.4 13.2 >5.0 Lateral Leg Ankle 1.9 14.0 74 Left Sural Anti Sensory (Lat Mall) Calf ? 2.9 3.6 <4.0 21.7 >5.0 Calf Lat Mall 2.9 14.0 48 Motor Summary Table ?Stim Site NR Onset (ms) Norm Onset (ms) O-P Amp (mV) Norm O-P Amp iAmp (mV) Amp (1st) (%) Site1 Site2 Delta-0 (ms) Dist (cm) Lemuel (m/s) Norm Lemuel (m/s) Left Peroneal Motor (Ext Dig Brev) Ankle ? 5.1 <4.0 4.5 >2.5 5.2 100.0 Ankle Ext Dig Brev 5.1 0.0 B Fib ? 11.2 4.2 4.9 93.3 B Fib Ankle 6.1 29.0 48 >40 Poplt ? 12.2 4.3 4.9 95.6 Poplt B Fib 1.0 4.0 40 >40 Left Tibial Motor (Abd Cunha Brev) Ankle ? 3.1 <5 17.6 >2.5 24.8 100.0 Ankle Abd Cunha Brev 3.1 0.0 Knee ? 11.3 11.0 16.8 62.5 Knee Ankle 8.2 37.0 45 >40 EMG ?Side Muscle Nerve Root Ins Act Fibs Psw Amp Dur Poly Recrt Int Pat Comment Left AbdHallucis MedPlantar S1-2 Nml Nml Nml Nml Nml 0 Nml Complete Left AntTibialis Dp Br Peron L4-5 Nml Nml Nml Nml Nml 0 Nml Complete Left PostTibialis Tibial L5, S1 Nml Nml Nml Nml Nml 0 Nml Complete Left MedGastroc Tibial S1-2 Nml Nml Nml Nml Nml 0 Nml Complete Left VastusMed Femoral L2-4 Nml Nml Nml Nml Nml 0 Nml Complete Left Peroneus Long Sup Br Peron L5-S1 Nml Nml Nml Nml Nml 0 Nml Complete FINDINGS: Left peroneal nerve showed prolonged distal latency, normal amplitude and mild slowing of conduction velocity across fibular neck. All other nerves tested were within normal. Concentric needle EMG was performed in selected muscles of the left lower extremity. Study did not reveal signs of electric abnormalities as shown in the table above. IMPRESSION: 1. This is an abnormal study. 2. 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 3. There is no electrodiagnostic evidence for tibial neuropathy, lumbosacral plexopathy, lumbar radiculopathy, or peripheral neuropathy. Thank you for your kind referral. Lani Johnson MD, MELINDA Board Certified, [place] [employer] and [employer] (ABPMR) Board Certified, [place] Board of Electrodiagnostic Medicine (ABEM) CODIN 57526 x 1 extremity MTDD
--- OUTSIDE RECORDS SUMMARY | 2025-04-14 11:47 | XMS_ITS | Encounter Summary ---
Author Organization [facility] Address [address] [place] [address] Care Team Providers Care Art Psychotherapist Name Role Phone Cynthia Hall MD Primary Care Prov ider Encounter Details Date Type Department Care Team ([facility] st Contact Info) Description 04/01/2025 Results Follow-Up Orthopedic Surgery - [place] [address] [facility] [address] [place] [phone] Leyda Marte MD [address] [facility] [address] [place] [address] Social History Tobacco Use Types Packs/Day Years [...] Progress Notes * Leyda Marte MD - 04/01/2025 1:27 PM EST Can you let him know he has a couple small subtle findings on his MRI that we can discuss at followup but not sure if it fully explains his pain. Maybe subtle lateral meniscus tear, strain of musclein back of his knee. documented in this encounter Plan of Treatment Upcoming Encounters Date Type Department Care Team (Late st Contact Info) Description 05/07/2025 9:30 AM EST Office Visit Orthopedic Surgery [facility] [address] [facility] [address] [place] [phone] Leyda Marte MD [address] [facility] [address] [place] [address] 05/10/2025 9:00 AM EST Office Visit Orthopedic Surgery [facility] [address] [facility] [address] [place] [phone] Ru Ivan DPM [address] [facility] [address] [place] [phone] Scheduled Procedures Name Priority Associated Diagnoses Date/Ti [...] on filedocumented in this encounter Care Teams Art Psychotherapist Relationship Specialty Start Date End Date Cynthia Hall MD [address] [place] [id number] PCP - General 02/11/24 documented as of this encounter
--- OUTSIDE RECORDS SUMMARY | 2025-04-14 11:47 | XMS_ITS | Clinical Summary ---
Author Organization [facility] Address [address] [place] [phone] Phone Care Team Providers Care Cemetery Workers Supervisor Name Role Phone Cynthia Hall MD Primary [...] file Medical Devices Not on file Insurance [facility] [place] [id number] [facility] Care Teams Cemetery Workers Supervisor Relationship Specialty Start Date End Date Cynthia Hall MD [address] [place] [phone] PCP - General Internal Medicine 09/07/24 Additional Source Comments The information contained in this document represents components of the legal health record. It is not the complete legal health record.[facility]
--- OUTSIDE RECORDS SUMMARY | 2025-04-14 11:47 | XMS_ITS | Clinical Summary ---
Author Organization 175 [facility] Address [address] [place] [address] Phone Care Team Providers Care Care Nurse Rn Name Role Phone Cynthia Hall MD Primary [...] 90 capsule 1 5 04/15/20 25 Active diclofenac (VOLTAREN) 1 % topical gel Apply 4 g topically 4 (four) times a day. 480 g 3 5 Active diclofenac (VOLTAREN) 75 mg EC tablet Take 1 tablet (75 mg total) by mouth 2 (two) times daily after breakfast and dinner for 14 days. Do not crush, chew, or split. 28 tablet 1 5 04/20/20 25 Active Active Problems Problem Noted Date Diagnosed Date [...] today to go over EMG results, 01/04/2025 [facility], which showed mild bilateral lateral femoral cutaneous [...] likely to follow-up with sports medicine at [facility], possible hip arthroscopy. (Orthopedics did recommend he get hip pathology checked in telephone encounters in [place]). I asked him to call with any [...] An MRI of the lumbar spine from [facility] dated June 08, 2024 reveals mild degenerative [...] (03/02/2024): sensory neuropathy ; provider [address] 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 02/13/2024 Avascular necrosis 12/17/2023 Sesamoiditis of right foot 10/01/2023 Fibromyalgia 04/16/2023 [...] Encounters Date Type Department Care Team Description 04/07/2025 Telephone Orthopedic Surgery - [place] 175 [facility] [address] [place] [phone] Lisa Starks MD 04/06/2025 9:00 AM EST Office Visit Orthopedic [facility] 160 175 [facility] [address] [place] [phone] Leyda Marte MD Chronic pain of left knee (Primary Dx) 04/05/2025 Telephone Orthopedic [facility] [address] [phone] Julieth Agarwal CO 04/01/2025 Results Follow-Up [facility] [address] [phone] Leyda Marte MD 03/22/2025 3:30 PM EST - 03/22/2025 11:59 PM EST Hospital Encounter [facility] [address] [place] [phone] Chronic pain of left knee; Neuropathy Discharge Disposition: Home or Self Care 03/22/2025 2:45 PM EST Office Visit Orthopedic [facility] [address] [phone] Leyda Marte MD Chronic pain of left knee (Primary Dx); Neuropathy 03/16/2025 10:45 AM EST Office Visit [facility] [address] [phone] Leyda Marte MD Chronic pain of left knee (Primary Dx); Neuropathy 03/16/2025 7:30 AM EST Treatment [facility] [address] [phone] Norma Jeronimo, PT Acute pain of left knee (Primary Dx) 03/15/2025 5:00 PM EST Evaluation [address] [phone] Norma Jeronimo, PT Acute pain of left knee (Primary Dx) 03/01/2025 2:30 PM EST Consult Orthopedic [facility] [address] [phone] Leyda Marte MD Acute pain of left knee (Primary Dx) 02/22/2025 2:35 PM EDT - 02/22/2025 11:59 PM EDT Hospital Encounter Xray - [address] [phone] Acute pain of left knee Discharge Disposition: Home or Self Care 02/22/2025 2:15 PM EDT Office Visit Walk-In Clinic - [address] [phone] Howie Snider PA Acute pain of left knee (Primary Dx) 02/22/2025 Telephone [facility] [address] [phone] Cynthia Hall MD 02/04/2025 8:45 AM EDT Office Visit Orthopedic Surgery [facility] 250 175 [facility] [address] [place] [phone] Ru Ivan, DPM Hallux rigidus of left foot (Primary Dx) 01/29/2025 10:15 AM EDT Office Visit Orthopedic [facility] 175 [facility] [address] [place] [phone] Lisa Starks MD Extensor carpi ulnaris tendinitis (Primary Dx) 01/15/2025 Telephone Neurosurgery [facility] 175 [facility] [address] [place] [phone] Geovanna Trujillo MA 01/14/2025 Telephone Orthopedic Surgery [facility] 175 [facility] [address] [place] [phone] Lisa Starks MD from Last 3 Months Immunizations Immunization Administration Dates Next Due DTP 12/27/1989 DTaP (Infanrix) 6wks to less than 7yo ,11/11/1986,1985,1985,1985 DTaP / Hib 12/27/1989, 7,1985,1985,1985 MSwG-UDY-KNZ (Pentacel) 2mo to less than 5yo 06/21/1987 Hepatitis A Adult (Havrix; V aqta) 19yo and older 09/27/2003 Hepatitis A Pediatric (Havri x; Vaqta) 12mo to less than 19yo 03/06/2006 Hepatitis A Vaccine, Pediatr ic Dosage, Unspecified Formulation 03/06/2006 Hepatitis B (Dwcjqic-Z-Exazm , Recombivax HB-Adult) 19yo and older 05/05/1996,04/07/1996 [...] History Surgery Date Site/Laterality Comments HAND SURGERY [id number] 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 Family History Medical History Relation Name Comments [...] Orientation Straight 06/07/2024 9: 43 AM EST Last Filed Vital Signs Vital Sign Reading Time Taken Comments Blood Pressure 115/76 02/22/2025 2:20 PM EDT Pulse 97 02/22/2025 2:20 PM EDT Temperature 36.8 C (98.2 F) 02/22/2025 2:20 PM EDT Respiratory Rate 20 02/22/2025 2:20 PM EDT Oxygen Saturation 97% 02/22/2025 2:20 PM EDT Inhaled Oxygen Concentration - - Weight 77.1 kg (170 lb) 04/06/2025 9:04 AM EST Height 170.2 cm (5' 7.01 ) 04/06/2025 9:04 AM ES T Body Mass Index 26.62 04/06/2025 9:04 AM EST Plan of Treatment Upcoming Encounters Date Type Department Care Team (Late st Contact Info) Description 05/07/2025 9:30 AM EST Office Visit Orthopedic Surgery [facility] 160 175 [facility] [address] [place] [phone] Leyda Marte MD 175 [facility] [address] [place] [address] 05/10/2025 9:00 AM EST Office Visit Orthopedic Surgery [facility] 250 175 [facility] [address] [place] [phone] Ru Ivan, DPM 175 [facility] [address] [place] [phone] Scheduled Procedures Name Priority Associated Diagnoses Date/Ti [...] DAILY ACTIVITIES Medical Devices Implanted Type Area Shirt Finisher Device Identifier Shelf Expiration Date Model / Serial / Lot Pre Flex Metacarpophlangeal Implant Implanted:Qty: 1 on 08/06/2024 by Lisa Starks MD at [facility] Right: Middle Finger [employer] [id number] 07/14/2026 MCPX-40 / N/A / [id number] Procedures Procedure Name Priority Date/Time Associated Diagnosis Comments MR KNEE WO CONTRAST LEFT Routine 03/22/2025 4:50 PM EST Chronic pain of left knee Neuropathy DE ARTHROCENTESIS/ASPIR ATION/INJECTION MAJOR JOINT/BURSA W/O U/S GUIDANCE Routine 03/01/2025 2:30 PM EST Acute pain of left knee XR KNEE 4+ VIEWS LEFT Routine 02/22/2025 2:46 PM EDT Acute pain of left knee HM DEPRESSION SCREENING Routine 10/08/2023 LIPID PANEL Routine 12/01/2012 from Last 3 Months or Most Recently Relevant to Health Maintenance Results * MR Knee wo Contrast Left (03/22/2025 4:50 PM EST) Anatomical Region Laterality Modality Lower Extremities, Knee Left Magnetic Resonance 03/30/2025 3:57 AM EST Impressions 03/30/2025 4:12 AM EST 1. Findings suspicious for subtle lateral meniscal tear extending peripherally 2. Edema along the popliteus muscle and tendon sheath suspicious for strain 3. Findings suspicious for tearing of the posterior inferior popliteal meniscal fascicle 4. Nonspecific edema in the posterior medial aspect of the left knee suspicious for meniscocapsular separation -------- FINAL REPORT -------- Dictated By: Salma Farmer Dictated Date: 03/30/2025 03:57 ET Assigned Physician: Salma Farmer Reviewed and Electronically Signed By: Salma Farmer Signed Date: 03/30/2025 04:12 ET Workstation ID: [id number] Transcribed By: Self Edit Transcribed Date: 03/30/2025 03:57 ET Narrative 03/30/2025 4:12 AM EST INDICATION: Knee pain, neg xray or effusion only left knee pain and lateral numbness- eval lateral meniscus tear, peroneal nerve injury COMPARISON: None TECHNIQUE: Multiplanar, multisequence MRI examination was performed of the LEFT knee without intravenous contrast. FINDINGS: Menisci:Nonspecific horizontal signal involving the posterior horn of the medial meniscus which does not touch the articular surface and may represent vascular signal. Faint horizontal signal which touches the articular surface involving the posterior horn of the lateral meniscus which may represent a subtle lateral meniscal tear extending peripherally. Ligaments:ACL, PCL, MCL, and LCL complex are intact. Tendons:Quadriceps tendon is intact. Patellar tendinosis. Popliteus tendon is intact. Bones:Cystic change at the level of the tibial tubercle which may represent stigmata of prior [place] Schlatter disease. No acute fracture or dislocation. Cartilage: Patellofemoral:Preserved Medial tibiofemoral:Preserved Lateral tibiofemoral:Preserved Miscellaneous:Discontinuity of the posterior inferior popliteal meniscal fascicle which may represent tearing. Edema along the posterior medial aspect of the left knee (series 3, image 8) suspicious for meniscocapsular separation. Left knee joint fluid. Mild prepatellar subcutaneous soft tissue edema. Mild edema and quadriceps fat pad without bulge. Edema along the popliteus muscle and tendon sheath suspicious for strain. No abnormal signal along the course of the peroneal nerve. Medial plica. Procedure Note Salma Farmer MD - 03/30/2025 INDICATION: Knee pain, neg xray or effusion only left knee pain and lateral numbness- eval lateral meniscus tear, peronealnerve injury COMPARISON: None TECHNIQUE: Multiplanar, multisequence MRI examination was performed ofthe LEFT knee without intravenous contrast. FINDINGS: Menisci:Nonspecific horizontal signal involving the posterior horn of themedial meniscus which does not touch the articular surface and mayrepresent vascular signal. Faint horizontal signal which touches thearticular surface involving the posterior horn of the lateral meniscuswhich may represent a subtle lateral meniscal tear extendingperipherally. Ligaments:ACL, PCL, MCL, and LCL complex are intact. Tendons:Quadriceps tendon is intact. Patellar tendinosis. Popliteustendon is intact. Bones:Cystic change at the level of the tibial tubercle which mayrepresent stigmata of prior [place] Schlatter disease. No acute fractureor dislocation. Cartilage: Patellofemoral:Preserved Medial tibiofemoral:Preserved Lateral tibiofemoral:Preserved Miscellaneous:Discontinuity of the posterior inferior popliteal meniscalfascicle which may represent tearing. Edema along the posterior medialaspect of the left knee (series 3, image 8) suspicious for meniscocapsularseparation. Left knee joint fluid. Mild prepatellar subcutaneous softtissue edema. Mild edema and quadriceps fat pad without bulge. Edemaalong the popliteus muscle and tendon sheath suspicious for strain. Noabnormal signal along the course of the peroneal nerve. Medial plica. IMPRESSION: 1. Findings suspicious for subtle lateral meniscal tear extendingperipherally 2. Edema along the popliteus muscle and tendon sheath suspicious forstrain 3. Findings suspicious for tearing of the posterior inferior poplitealmeniscal fascicle 4. Nonspecific edema in the posterior medial aspect of the left kneesuspicious for meniscocapsular separation -------- FINAL REPORT -------- Dictated By: Salma Farmer Dictated Date: 03/30/2025 03:57 ET Assigned Physician: Salma Farmer Reviewed and Electronically Signed By: Salma Farmer Signed Date: 03/30/2025 04:12 ET Workstation ID: [id number] Transcribed By: Self Edit Transcribed Date: 03/30/2025 03:57 ET us Leyda Marte MD IMG MRI PROCEDURES Final Resul t * DE ARTHROCENTESIS/ASPIRATION/INJECTION MAJOR JOINT/BURSA W/O U/S GUIDANCE (03/01/2025 [...] Laterality Modality Lower Extremities, Knee [facility] 02/22/2025 11:1 1 PM EDT [...] Signed Date: 02/22/2025 23:12 ET Workstation ID: [id number] Transcribed By: Self Edit Transcribed Date: 02/22/2025 [...] Signed Date: 02/22/2025 23:12 ET Workstation ID: [id number] Transcribed By: Self Edit Transcribed Date: 02/22/2025 23:11 ET Result [facility] Howie HERNÁNDEZ IMG XR PROCEDURES Final Result * Depression Screening (10/08/2023) Depression Screening Abstracted Historical Provider HEALTH MAINTENANCE Final Result * Lipid panel (12/01/2012) Cholesterol 150 0 - 200 mg/dL LDL Cholesterol 78 0 - 100 mg/dL Blood Venous blood specimen / Unknown Result [facility] Historical Provider LAB BLOOD ORDERABLES Prudence l Result from Last 3 Months or Most Recently Relevant to Health Maintenance Insurance [facility] Advance Directives * Full Code - [...] currently active code status orders. Care Teams Care Nurse Rn Relationship Specialty Start Date End Date Cynthia Hall MD [address] [place] [id number] PCP - General 02/11/24
== END 2025-04-14 09:52 | disposition home or self-care (01) ==
LOC: HO.NEURO 09:51
PROVIDERS: PCP Internal Medicine; Visit Provider Internal Medicine
DX: M25.562 Pain in left knee (principal); G62.9 Polyneuropathy, unspecified; R20.2 Paresthesia of skin
CPT/HCPCS: 95886; 95908

== ENCOUNTER → 2025-04-14 09:54 | Outpatient (BNV) | payer OTHER, SELFPAY | PROVIDERS: PCP Internal Medicine; Visit Provider Physical Medicine & Rehabilitation | DX: G57.32 Lesion of lateral popliteal nerve, left lower limb (principal) | CPT/HCPCS: 95886; 95908 ==